=== PATIENT | female | born 1935 | race Caucasian/White ===

== ENCOUNTER → 2016-10-27 | Outpatient (CLI) | payer OTHER ==
[2016-10-27 13:48] LABS: ALT/SGPT 34 U/L (12-78); AST/SGOT 29 U/L (15-37); BLOOD UREA NITROGEN 17 mg/dl (7-18); BUN/CREATININE RATIO 28.6 (10-20); CALCIUM 9.5 mg/dl (8.5-10.1); CARBON DIOXIDE 29 mmol/L (21-32); CHLORIDE 106 mmol/L (98-107); CREATININE 0.59 mg/dl (0.60-1.20); GLUCOSE 88 mg/dl (70-99); POTASSIUM 3.5 mmol/L (3.5-5.1); SODIUM 143 mmol/L (136-145)
[2016-10-27 13:56] LABS: ALB/GLOB RATIO 1.1 (0.9-2); ALKALINE PHOSPHATASE 108 U/L (45-117); CHOLESTEROL 145 mg/dl (0-200); HDL CHOLESTEROL 49 mg/dl; LDL CHOLESTEROL CALCULATED 67 mg/dl; TRIGLYCERIDES 146 mg/dl (0-150); VERY LOW DENSITY LIPOPROT CALC 29 mg/dl
[2016-10-27 14:17] LABS: MEAN CELL VOLUME 88.2 fL (80-100); MEAN CORPUSCULAR HEMOGLOBIN 31.3 pg (25-34); MEAN CORPUSCULAR HGB CONC 35.5 g/dl (32-36); MEAN PLATELET VOLUME 9.6 fL (7.4-10.4); PLATELET COUNT 243 K/uL (130-400); RED BLOOD COUNT 4.76 M/uL (4.2-5.4); WHITE BLOOD COUNT 5.55 K/uL (4.8-10.8)
[2016-10-27 14:18] LABS: BASOPHIL % 1.8 %; COMPLETE YES; EOSINOPHIL % 1.8 %; LYMPH ABS # 0.84 K/uL (1.2-3.4); LYMPHOCYTE % 15.2 %; NEUTROPHILS % 50.8 %; PLT ESTIMATE NORMAL; TOXIC GRANULATION 1+; VARIANT LYM ABS # 0.99 K/uL; VARIANT LYMPHOCYTE % 17.9 %
== END | disposition home or self-care (01) ==
LOC: C.LABMFLN 11:28
PROVIDERS: ATTEND Family Medicine
DX: I10 Essential (primary) hypertension (principal); E78.5 Hyperlipidemia, unspecified; E03.9 Hypothyroidism, unspecified

== ENCOUNTER → 2017-12-14 | Outpatient (CLI) | payer OTHER ==
[2017-12-14 12:42] LABS: BASO % 0.6 %; BASO ABS # 0.03 K/uL (0-0.2); EOS % 4.3 %; EOS ABS # 0.22 K/uL (0-0.5); HEMATOCRIT 40.6 % (37-47); HEMOGLOBIN 14.5 g/dL (12.0-16.0); LYMPH % 47.2 %; LYMPH ABS # 2.41 K/uL (1.2-3.4); MEAN CORPUSCULAR HEMOGLOBIN 31.8 pg (25-34); MEAN CORPUSCULAR HGB CONC 35.7 g/dl (32-36); MEAN PLATELET VOLUME 9.7 fL (7.4-10.4); MONO % 13.7 %; NEUT % 34.2 %; NEUT ABS # 1.75 K/uL (1.4-6.5); PLATELET COUNT 292 K/uL (130-400); RED CELL DISTRIBUTION WIDTH CV 12.8 % (11.5-14.5); RED CELL DISTRIBUTION WIDTH SD 41.5 fL (36.4-46.3); WHITE BLOOD COUNT 5.11 K/uL (4.8-10.8)
[2017-12-14 13:19] LABS: ALBUMIN 3.6 gm/dl (3.4-5.0); ALT/SGPT 35 U/L (12-78); AST/SGOT 37 U/L (15-37); BLOOD UREA NITROGEN 16 mg/dl (7-18); CALCIUM 8.8 mg/dl (8.5-10.1); CARBON DIOXIDE 27 mmol/L (21-32); CHOLESTEROL 135 mg/dl (0-200); CREATININE 0.64 mg/dl (0.60-1.20); GLUCOSE 90 mg/dl (70-99); POTASSIUM 3.5 mmol/L (3.5-5.1); SODIUM 139 mmol/L (136-145)
[2017-12-14 13:28] LABS: ALKALINE PHOSPHATASE 121 U/L (45-117); LDL CHOLESTEROL CALCULATED 68 mg/dl; TOTAL PROTEIN 6.9 gm/dl (6.4-8.2)
== END | disposition home or self-care (01) ==
LOC: C.LABMFLN 09:47
PROVIDERS: ATTEND Family Medicine
DX: I10 Essential (primary) hypertension (principal); E78.5 Hyperlipidemia, unspecified; E03.9 Hypothyroidism, unspecified

== ENCOUNTER 2021-02-09 06:58 | Inpatient (IN) ==
--- NOTE | 2021-01-05 15:53 | PAT Medication Instructions ---
Medication Instructions Date of Service January 05, 2021 Home Medications Medication Instructions Recorded chlorthalidone 50 mg tablet 50 mg PO DAILY #90 tab 02/10/20 simvastatin 40 mg tablet 40 mg PO DAILY #90 tab 02/11/20 glucosamine-chondroitin 250 mg-200 mg tablet 1 tab PO QAM multivitamin 1 tab PO QAM psyllium husk 0.4 gram capsule 0.4 g PO QPM triamcinolone acetonide 55 mcg nasal spray aerosol 2 sprays INTRANASAL DAILY calcium carbonate 600 mg (1,500 mg)-vitamin D3 400 unit tablet 1 tab PO BID polyethylene glycol 3350 17 gram/dose oral powder 17 gm PO QAM PRN doxycycline hyclate 50 mg capsule 50 mg PO DAILY chlorthalidone 50 mg tablet 50 mg PO DAILY simvastatin 40 mg tablet 40 mg PO DAILY loratadine 10 mg tablet 10 mg PO QAM carboxymethylcellulose sodium 0.5 % eye drops in a dropperette 1 drp OPHTHALMIC (EYE) .COMPLEX levothyroxine [Synthroid] 88 mcg PO QAM oxybutynin chloride 5 mg PO BID pantoprazole 40 mg PO QAM potassium chloride 20 meq PO QPM potassium chloride 40 meq PO QAM STOP taking 2 weeks before surgery (or as soon as possible if surgery is within 2 weeks) glucosamine-chondroitin 250 mg-200 mg tablet 1 tab PO QAM DO NOT take the morning of surgery multivitamin 1 tab PO QAM calcium carbonate 600 mg (1,500 mg)-vitamin D3 400 unit tablet 1 tab PO BID polyethylene glycol 3350 17 gram/dose oral powder 17 gm PO QAM PRN chlorthalidone 50 mg tablet 50 mg PO DAILY loratadine 10 mg tablet 10 mg PO QAM oxybutynin chloride 5 mg PO BID potassium chloride 40 meq PO QAM Take morning of surgery With a small sip of water, OTHERWISE NOTHING TO EAT OR DRINK AFTER MIDNIGHT: doxycycline hyclate 50 mg capsule 50 mg PO DAILY simvastatin 40 mg tablet 40 mg PO DAILY carboxymethylcellulose sodium 0.5 % eye drops in a dropperette 1 drp OPHTHALMIC (EYE) .COMPLEX levothyroxine [Synthroid] 88 mcg PO QAM pantoprazole 40 mg PO QAM Take evening before surgery psyllium husk 0.4 gram capsule 0.4 g PO QPM calcium carbonate 600 mg (1,500 mg)-vitamin D3 400 unit tablet 1 tab PO BID carboxymethylcellulose sodium 0.5 % eye drops in a dropperette 1 drp OPHTHALMIC (EYE) .COMPLEX oxybutynin chloride 5 mg PO BID potassium chloride 20 meq PO QPM Other Notes If you have any questions please call us at [phone] or [phone] or [phone] or [phone]
--- NOTE | 2021-01-10 10:28 | Anesthesiology Consultation ---
Date of Service January 10, 2021 Assessment & Plan (1) Encounter for pre-operative examination: - COVID screening: Per assessment on 01/10: Travel screen negative, no known COVID-19 positive contacts or current COVID-19 related symptoms. Patient fully vaccinated. Surgeon arranging preop COVID testing (scheduled 02/04; [facility]). Awaiting results. - RUE limb restriction: s/p right lumpectomy with LND - PCP office visit (12/03/20): Routine screenings reviewed. No acute complaints. F/U one year recommended. Chart Review Chart Review: Acceptable Risk for Surgery and Patient seen in Pre Admission Testing Teaching & Discussion Pre-Anesthesia Teaching/Discussion Notes: Instructed NPO after midnight before surgery,except medications with 15 cc of water. Medication instructions provided according to the PAT guidelines. History Surgery Operation Date: 02/09/21 07:15 Proposed Procedures p Total Knee Arthroplasty - Paulino Hill MD Height/Weight Height: 5 ft 2.25 in Weight: 71 kg Allergies Allergy/AdvReac Type Severity Reaction Status Date / Time aspirin Allergy Unknown Mouth and Verified 01/10/21 10:37 tongue swelling ibuprofen Allergy Unknown Mouth Verified 01/10/21 10:37 swelling naproxen Allergy Unknown Anaphylaxis Verified 01/10/21 10:37 propoxyphene AdvReac Unknown Nausea Verified 01/10/21 10:37 Medications Home Medications Medication Instructions Recorded Confirmed Last Taken glucosamine-chondroitin 250 mg-200 1 tab PO QAM 03/16/19 01/03/21 Unknown mg tablet multivitamin 1 tab PO QAM 03/16/19 01/03/21 Unknown psyllium husk 0.4 gram capsule 0.4 g PO QPM cap 03/16/19 01/03/21 Unknown triamcinolone acetonide 55 mcg 2 sprays INTRANASAL DAILY ml 03/16/19 01/03/21 Unknown nasal spray aerosol calcium carbonate 600 mg (1,500 1 tab PO BID tab 03/19/19 01/03/21 Unknown mg)-vitamin D3 400 unit tablet polyethylene glycol 3350 17 17 gm PO QAM PRN gm 03/19/19 01/03/21 Unknown gram/dose oral powder doxycycline hyclate 50 mg capsule 50 mg PO DAILY 03/21/19 01/03/21 Unknown chlorthalidone 50 mg tablet 50 mg PO DAILY #90 tab 02/10/20 01/03/21 Unknown simvastatin 40 mg tablet 40 mg PO DAILY #90 tab 02/11/20 01/03/21 Unknown loratadine 10 mg tablet 10 mg PO QAM #30 tab 05/25/20 01/03/21 Unknown carboxymethylcellulose sodium 0.5 1 drp OPHTHALMIC (EYE) .COMPLEX ea 08/26/20 01/03/21 Unknown % eye drops in a dropperette levothyroxine [Synthroid] 88 mcg PO QAM 01/03/21 01/03/21 Unknown oxybutynin chloride 5 mg PO BID 01/03/21 01/03/21 Unknown pantoprazole 40 mg PO QAM 01/03/21 01/03/21 Unknown potassium chloride 20 meq PO QPM 01/03/21 01/03/21 Unknown potassium chloride 40 meq PO QAM 01/03/21 01/03/21 Unknown Past Medical History Medical History Acid reflux controlled Adult acne on doxycycline Allergic rhinitis Benign paroxysmal positional vertigo No recent issues Chronic low back pain Essential hypertension History of basal cell cancer History of right breast cancer s/p right lumpectomy with LND (RUE limb restriction) Hyperlipidemia Hypothyroidism Osteoarthritis of right knee Osteoporosis Patella fracture (~1980) Left knee -- no surgerical intervention Rosacea Urinary incontinence Exercise / Class Metabolic Activity II 4-5 Yardwork/Stairs/Walk up hill (one flight of stairs (no chest pain, no sob)) Past Family History Family History Mother Lung cancer Other No family history of adverse response to anesthesia Denies family history of Ovarian cancer Prostate cancer Myocardial infarction Breast cancer Colorectal cancer Stroke Past Surgical History Surgical History H/O ovarian cystectomy x2 History of cataract surgery R/L History of esophageal dilatation History of esophagogastroduodenoscopy (EGD) History of lumpectomy of right breast + LND History of surgical removal of skin lesion History of vitrectomy R/L S/P appendectomy S/P colonoscopy S/P hysterectomy ALEJANDRO & BSO Past Anesthesia History No Hx of Anesthesia Complications and No Family Hx of Anesthesia Complications History of PONV No Hx of PONV and No Hx of Motion Sickness Social History Smoking Status: Former smoker tobacco type: cigarettes Do You Dip or Chew Tobacco: No Smoking End Date: 1971 (very light use prior to quitting) Hx Alcohol Use: Yes Alcohol type: wine alcohol intake frequency: a few times a week Hx Substance Use: No substance use type: does not use Review of Systems No snoring. Patient denies chest pain, shortness of breath, dyspnea on exertion, fever, chills, cough, wheezing, palpitations. Physical Exam Vital Signs VITALS BP 122/72 P 76 TEMP 98.4 SP02 97%RA RESP 16 PHYSICAL Full cervical extension range of motion (+ cervicalgia with extension) Full TMJ range of motion. TMD 3.5 finger breaths Mallampati Score 3 Dentition: missing molars, + crowns/caps (several) Lungs: lower lung base crackles Cardiac: regular rate and rhythm, no murmurs noted Spine: normal Carotid arteries: negative bruit Extremities: no edema Testing Laboratory Results 01/10/21 10:58 01/10/21 10:58 PT 10.2 Seconds (9.0-12.0) 01/10/21 10:58 INR 1.0 (0.9-1.1) 01/10/21 10:58 APTT 24.0 Seconds (21.0-31.0) 01/10/21 10:58 Hemoglobin A1c 5.7 % (4.5-5.6) H 01/10/21 10:58 Urine Color Yellow 01/10/21 10:58 Urine Appearance Clear (Clear) 01/10/21 10:58 Urine pH 5.0 (4.5-7.5) 01/10/21 10:58 Ur Specific [place] 1.015 (1.000-1.030) 01/10/21 10:58 Urine Protein Negative (Negative) 01/10/21 10:58 Urine Glucose (UA) Negative (Negative) 01/10/21 10:58 Urine Ketones Negative (Negative) 01/10/21 10:58 Urine Nitrite Negative (Negative) 01/10/21 10:58 Ur Leukocyte Esterase Negative (Negative) 01/10/21 10:58 Blood Type B Negative 01/10/21 10:58 Antibody Screen NEGATIVE 01/10/21 10:58 Electrocardiogram Date: 01/10/21 NSR at 62bpm. NS STA. Chest X-Ray Date: 01/10/21 FINDINGS: The heart is normal in size. There is mild aortic tortuosity/ectasia. There are surgical clips in the right axillary region. There is no failure. There is no lobar consolidation. There are no significant pleural effusions. There is minor basilar interstitial thickening, likely chronic. IMPRESSION: Mild basilar interstitial thickening, likely chronic. No evidence of failure. No evidence of lobar consolidation
[2021-01-10 12:03] LABS: Basophils # (auto) 0.02 K/uL (0-0.2); Basophils % (auto) 0.3 %; Eosinophils # (auto) 0.32 K/uL (0-0.5); Eosinophils % (auto) 5.6 %; Hematocrit (blood only) 40.5 % (37-47); Hemoglobin 14.2 g/dL (12.0-16.0); Lymphocytes # (auto) 2.04 K/uL (1.2-3.4); Lymphocytes % (auto) 35.7 %; Mean Corpuscular Hemoglobin 31.6 pg (25-34); Mean Corpuscular Hgb Conc 35.1 g/dL (32-36); Mean Platelet Volume 9.5 fL (7.4-10.4); Monocytes # (auto) 0.57 K/uL (0.11-0.59); Neutrophils # (auto) 2.77 K/uL (1.4-6.5); Neutrophils % (auto) 48.4 %; Platelet Count 274 K/uL (130-400); RDW Coefficient of Variation 12.5 % (11.5-14.5); RDW Standard Deviation 40.6 fL (36.4-46.3); White Blood Count 5.72 K/uL (4.8-10.8)
[2021-01-10 12:06] LABS: Appearance Urine Clear (Clear); Bilirubin Urine Negative (Negative); Blood Urine Negative (Negative); Color Urine Yellow; Glucose Urine UA Negative (Negative); Ketones Urine Negative (Negative); Leukocyte Esterase Urine Negative (Negative); Nitrite Urine Negative (Negative); Protein Urine Negative (Negative); Specific Gravity Urine 1.015 (1.000-1.030); Urobilinogen Urine Negative (Negative)
[2021-01-10 12:15] LABS: Partial Thromboplastin Ratio 0.9; Prothrombin Time 10.2 Seconds (9.0-12.0)
[2021-01-10 12:18] LABS: Albumin Level 3.7 gm/dl (3.4-5.0); BUN Creatinine Ratio 32.6 (10-20); Creatinine Clr Calc Pharmacy 68.2 ml/min; Est GFR (African American) 98.4 ml/min; Est GFR (Non-African American) 84.9 ml/min; Potassium 3.4 mmol/L (3.5-5.1)
--- NOTE | 2021-01-10 12:39 | XRay Report ---
XR chest Pre-admission PA/Lat CLINICAL HISTORY: Preoperative chest COMPARISON STUDY: No previous studies for comparison. FINDINGS: The heart is normal in size. There is mild aortic tortuosity/ectasia. There are surgical cl ips in the right axillary region. There is no failure. There is no lobar consolidation. There are no significant pleural effusions. There is minor basilar interstitial thickening, likely chronic.[ IMPRESSION: Mild basilar interstitial thickening, likely chronic. No evidence of failure. No evidence of lobar consolidation ACT 112: Negative or not required by law. Electronically signed by: Mert Trimble M.D. 01/10/2021 12:38 PM
[2021-01-10 12:41] LABS: Estimated Average Glucose 117 mg/dl; Hemoglobin A1C 5.7 % (4.5-5.6)
--- NOTE | 2021-01-10 14:39 | Electrocardiogram Report ---
Test Reason : Blood Pressure : / mmHG Vent. Rate : 062 BPM Atrial Rate : 062 BPM P-R Int : 196 ms QRS Dur : 094 ms QT Int : 420 ms P-R-T Axes : -07 -15 -20 degrees QTc Int : 426 ms Normal sinus rhythm Nonspecific ST abnormality Abnormal ECG No previous ECGs available Confirmed by Carlos Rodriguez ([id number]) on 01/10/2021 2:39:21 PM Referred By: Paulino Hill Confirmed By:Carlos Rodriguez
--- NOTE | 2021-02-06 17:39 | History & Physical Report ---
Date of Service February 06, 2021 Assessment & Plan (1) Primary osteoarthritis of right knee: Treatment options discussed with patient. She has failed conservative measures as above. Pain interfering with ADLs and leisure activity. She would like to proceed with surgical intervention. Risks, benefits and alternatives to surgery including but not limited to infection, DVT, pain, stiffness, need for revision surgery, damage to blood vessels, damage to nerves, PE, , were discussed with the patient and they wish to proceed. Plan on right total knee arthroplasty at [facility] on 02/09/[address] Hill. Will plan on Xarelto for DVT prophylaxis post operatively. Will likely require inpatient rehab/care home facility post discharge. All questions answered. F/u post op. History of Present Illness Chief Complaint: Right knee pain Primary Care Provider: Zoe Sauceda MD 85 year old female with PMHx significant for GERD, BPPV, HTN, high cholesterol, hx of breast Ca and BCC, hypothyroidism who presents with longstanding right knee pain. Pain interfering with her ability to carry out daily activities and leisure activities. She is unable to take NSAIDs due to allergy. Has failed other conservative measures including Tylenol and injections. She would like to proceed with knee replacement. Patient denies headaches, sweats, fevers, chills, double vision, blurred vision, cough, sore throat, dysphagia, chest pain, sob, wheezing, n/v/d/c, numbness, tingling, fatigue, urinary symptoms, mood disorders. ROS positive for right knee pain and stiffness. Allergies Allergy/AdvReac Type Severity Reaction Status Date / Time aspirin Allergy Unknown Mouth and Verified 01/10/21 10:37 tongue swelling ibuprofen Allergy Unknown Mouth Verified 01/10/21 10:37 swelling naproxen Allergy Unknown Anaphylaxis Verified 01/10/21 10:37 propoxyphene AdvReac Unknown Nausea Verified 01/10/21 10:37 Home Medications Medication Instructions Recorded Confirmed Type glucosamine-chondroitin 250 mg-200 1 tab PO QAM 03/16/19 01/03/21 History mg tablet multivitamin 1 tab PO QAM 03/16/19 01/03/21 History psyllium husk 0.4 gram capsule 0.4 g PO QPM cap 03/16/19 01/03/21 History triamcinolone acetonide 55 mcg 2 sprays INTRANASAL DAILY ml 03/16/19 01/03/21 History nasal spray aerosol calcium carbonate 600 mg (1,500 1 tab PO BID tab 03/19/19 01/03/21 History mg)-vitamin D3 400 unit tablet polyethylene glycol 3350 17 17 gm PO QAM PRN gm 03/19/19 01/03/21 History gram/dose oral powder doxycycline hyclate 50 mg capsule 50 mg PO DAILY 03/21/19 01/03/21 History simvastatin 40 mg tablet 40 mg PO DAILY #90 tab 02/11/20 01/03/21 Rx loratadine 10 mg tablet 10 mg PO QAM #30 tab 05/25/20 01/03/21 History carboxymethylcellulose sodium 0.5 1 drp OPHTHALMIC (EYE) .COMPLEX ea 08/26/20 01/03/21 History % eye drops in a dropperette levothyroxine [Synthroid] 88 mcg PO QAM 01/03/21 01/03/21 History pantoprazole 40 mg PO QAM 01/03/21 01/03/21 History potassium chloride 20 meq PO QPM 01/03/21 01/03/21 History potassium chloride 40 meq PO QAM 01/03/21 01/03/21 History chlorthalidone 50 mg tablet 50 mg PO DAILY #90 tab 02/01/21 Rx oxybutynin chloride 5 mg tablet 5 mg PO BID #180 tab 02/01/21 Rx Past Med/Surg History Medical History Acid reflux controlled Adult acne on doxycycline Allergic rhinitis Benign paroxysmal positional vertigo No recent issues Chronic low back pain Essential hypertension History of basal cell cancer History of right breast cancer s/p right lumpectomy with LND (RUE limb restriction) Hyperlipidemia Hypothyroidism Osteoarthritis of right knee Osteoporosis Patella fracture (~1980) Left knee -- no surgerical intervention Rosacea Urinary incontinence Surgical History H/O ovarian cystectomy x2 History of cataract surgery R/L History of esophageal dilatation History of esophagogastroduodenoscopy (EGD) History of lumpectomy of right breast + LND History of surgical removal of skin lesion History of vitrectomy R/L S/P appendectomy S/P colonoscopy S/P hysterectomy ALEJANDRO & BSO Family History Mother Lung cancer Other No family history of adverse response to anesthesia Denies family history of Ovarian cancer Prostate cancer Myocardial infarction Breast cancer Colorectal cancer Stroke Social History Smoking Status: Former smoker Age Started Using Tobacco: 27; Age Quit Using Tobacco: 33; Smoking End Date: 1971 (very light use prior to quitting); Second Hand Exposure: Yes (Father smoked ); Do You Dip or Chew Tobacco: No; Tobacco Cessation Education Requested by Patient: No Hx Alcohol Use: Yes Alcohol type: wine Alcohol Intake Frequency: 2-3 x/Week Alcohol Intake Frequency Comment: 1 glass Hx Substance Use: No Preferred Language: [place] Communication Ability: Effective Visual Impairment: Limited Hearing Ability: Use of Hearing Aid Jack Spinner Required: No Beliefs That Will Affect Care: None marital status: / Current Living Situation: Alone current occupational status: employed 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 How many Children do You have: 2 Other Information That Helps Us Care for You: No Feels Safe at Home: Yes Childhood Exposure to Second-Hand Smoke: Yes (father smoked ) Diet Comment: Regular diet caffeine: Yes (drinks tea daily) during the past year weight has: remained stable Dental Care, Regularly: Yes Physical Activity Frequency: Daily Seatbelt Use: always Sunscreen Use: Yes Do you think of yourself as: straight/heterosexual Assistive Devices: Glasses and Hearing Aid - Bilateral Review of Systems All systems reviewed & are unremarkable except as noted in HPI & below Physical Exam Constitutional: well developed and well nourished; no acute distress Eyes: PERRL, conjunctivae normal, anicteric sclerae ENMT: external ear and nose normal, oropharynx normal Neck: trachea midline, no thyromegaly Respiratory: normal respiratory effort, lungs clear to auscultation Cardiovascular: RRR, no murmur, no edema Musculoskeletal: Right knee: Valgus alignment. Mild effusion. Tenderness lateral and medial joint line. Mild crepitation. Positive Ivan's. Laxity with valgus stress, negative varus stress. ROM 10-130 degrees Skin: no rashes, warm and dry Neurologic: patellar DTR's 2+ bilat, sensation intact Psychiatric: A+Ox3, euthymic affect Results & Data ([facility]) Laboratory Results Lab Results 01/10/21 01/10/21 01/10/21 Range/Units 10:58 10:58 10:58 WBC 5.72 (4.8-10.8) K/uL RBC 4.50 (4.2-5.4) M/uL Hgb 14.2 (12.0-16.0) g/dL Hct 40.5 (37-47) % MCV 90.0 (80-100) fL MCH 31.6 (25-34) pg MCHC 35.1 (32-36) g/dL RDW Std Deviation 40.6 (36.4-46.3) fL RDW Coeff of Luisa 12.5 (11.5-14.5) % Plt Count 274 (130-400) K/uL MPV 9.5 (7.4-10.4) fL Immature Gran % (Auto) 0.0 % Neut % (Auto) 48.4 % Lymph % (Auto) 35.7 % [place] % (Auto) 10.0 % Eos % (Auto) 5.6 % Baso % (Auto) 0.3 % Neut # (Auto) 2.77 (1.4-6.5) K/uL Lymph # (Auto) 2.04 (1.2-3.4) K/uL [place] # (Auto) 0.57 (0.11-0.59) K/uL Eos # (Auto) 0.32 (0-0.5) K/uL Baso # (Auto) 0.02 (0-0.2) K/uL Immature Gran # (Auto) 0.00 (0.00-0.02) K/uL PT 10.2 (9.0-12.0) Seconds INR 1.0 (0.9-1.1) APTT 24.0 (21.0-31.0) Seconds PTT Ratio 0.9 Sodium (136-145) mmol/L Potassium (3.5-5.1) mmol/L Chloride (98-107) mmol/L Carbon Dioxide (21-32) mmol/L Anion Gap (3-11) BUN (7-18) mg/dl Creatinine (0.6-1.2) mg/dl Est Cr Clr Drug Dosing ml/min Est GFR ( Amer) ml/min Est GFR (Non-Af Amer) ml/min BUN/Creatinine Ratio (10-20) Glucose (70-99) mg/dl Estimat Average Glucose mg/dl Hemoglobin A1c (4.5-5.6) % Calcium (8.5-10.1) mg/dl Albumin (3.4-5.0) gm/dl Urine Color Urine Appearance (Clear) Urine pH (4.5-7.5) Ur Specific [place] (1.000-1.030) Urine Protein (Negative) Urine Glucose (UA) (Negative) Urine Ketones (Negative) Urine Blood (Negative) Urine Nitrite (Negative) Urine Bilirubin (Negative) Urine Urobilinogen (Negative) Ur Leukocyte Esterase (Negative) Blood Type B Negative Antibody Screen NEGATIVE 01/10/21 01/10/21 01/10/21 Range/Units 10:58 10:58 10:58 WBC (4.8-10.8) K/uL RBC (4.2-5.4) M/uL Hgb (12.0-16.0) g/dL Hct (37-47) % MCV (80-100) fL MCH (25-34) pg MCHC (32-36) g/dL RDW Std Deviation (36.4-46.3) fL RDW Coeff of Luisa (11.5-14.5) % Plt Count (130-400) K/uL MPV (7.4-10.4) fL Immature Gran % (Auto) % Neut % (Auto) % Lymph % (Auto) % [place] % (Auto) % Eos % (Auto) % Baso % (Auto) % Neut # (Auto) (1.4-6.5) K/uL Lymph # (Auto) (1.2-3.4) K/uL [place] # (Auto) (0.11-0.59) K/uL Eos # (Auto) (0-0.5) K/uL Baso # (Auto) (0-0.2) K/uL Immature Gran # (Auto) (0.00-0.02) K/uL PT (9.0-12.0) Seconds INR (0.9-1.1) APTT (21.0-31.0) Seconds PTT Ratio Sodium 142 (136-145) mmol/L Potassium 3.4 L (3.5-5.1) mmol/L Chloride 109 H (98-107) mmol/L Carbon Dioxide 27 (21-32) mmol/L Anion Gap 6.0 (3-11) BUN 18 (7-18) mg/dl Creatinine 0.55 L (0.6-1.2) mg/dl Est Cr Clr Drug Dosing 68.2 ml/min Est GFR ( Amer) 98.4 ml/min Est GFR (Non-Af Amer) 84.9 ml/min BUN/Creatinine Ratio 32.6 H (10-20) Glucose 106 H (70-99) mg/dl Estimat Average Glucose 117 mg/dl Hemoglobin A1c 5.7 H (4.5-5.6) % Calcium 9.0 (8.5-10.1) mg/dl Albumin 3.7 (3.4-5.0) gm/dl Urine Color Yellow Urine Appearance Clear (Clear) Urine pH 5.0 (4.5-7.5) Ur Specific [place] 1.015 (1.000-1.030) Urine Protein Negative (Negative) Urine Glucose (UA) Negative (Negative) Urine Ketones Negative (Negative) Urine Blood Negative (Negative) Urine Nitrite Negative (Negative) Urine Bilirubin Negative (Negative) Urine Urobilinogen Negative (Negative) Ur Leukocyte Esterase Negative (Negative) Blood Type Antibody Screen Diagnostic Findings X-rays of her right knee demonstrate that she has bilateral valgus knees, right greater than left. She has tricompartmental osteoarthritis both knees. The left knee is close to being bone on bone with only about a millimeter or two of joint space. The right knee is clearly bone on bone. Both knees have medial subluxation of the femur on the tibia. There are subchondral sclerotic changes. There are osteophytes. Four-view right knee including weightbearing films.
[~2021-02-09 06:58] MED LIST: ACETAMINOPHEN 500 MG TAB PO SCH; BUPIVACAINE 0.25% 30 ML VIAL ONE; BUPIVACAINE 0.5 % 5 MG/1 ML PF 10ML VIAL ONE; EPINEPHrine INJ 1 MG/ML AMP ONE; FAMOTIDINE 20 MG TAB PO SCH; GABAPENTIN 300 MG CAP PO SCH; LR 500ML BOLUS, THEN 15ML/HR IV SCH; METOCLOPRAMIDE HCL 10 MG TABLET PO SCH; TRANEXAMIC ACID 1,000 MG **IV Intra-op IV SCH; TRANEXAMIC ACID 1,000 MG **IV Pre-op IV SCH; ceFAZolin 1000MG 1,000 MG/7.5 ML SYR IV SCH; dexAMETHasone 4 MG TAB PO SCH
[2021-02-09] MEDS ORDERED: MIDAZOLAM HCL 1 MG/ML 2ML VIAL ONE (08:27)
[2021-02-09] MEDS ORDERED: fentaNYL citrate 100 MCG/2 ML VIAL IV PRN (08:48)
[2021-02-09] MEDS ORDERED: ONDANSETRON INJ 2 MG/ML 2 ML VIAL IV PRN ×2 (08:48→12:57)
[2021-02-09] MEDS ORDERED: ePHEDrine sulfate 50 MG/ML AMP IV PRN (08:48)
[2021-02-09] MEDS ORDERED: ATROPINE SULFATE 0.1 MG/ML 10ML SYR IV PRN (08:48)
[2021-02-09] MEDS ORDERED: HYDROmorphone INJ 2 MG/ML SYR/VIAL IV PRN (08:48)
--- NOTE | 2021-02-09 08:55 | History & Physical Bridge Note ---
Date of Service February 09, 2021 History & Physical Bridge Note I have examined the patient, reviewed the History & Physical and in the interval since the performance of the History & Physical I have noted the following changes of clinical significance: no changes noted
[2021-02-09] MEDS ORDERED: ROPIVACAINE 0.5% HCL/PF 150 MG, BUPIVACAINE 0.75% MPF 20 ML, EPINEPHrine 0.15 MG, dexAM... INFIL SCH (10:00)
[2021-02-09] MEDS ORDERED: METOPROLOL TARTRATE 1 MG/ML VIAL IV ONE (11:08)
[2021-02-09] MEDS ORDERED: PROPOFOL IV EMULSION 10 MG/ML 20 ML VIAL IV ONE (11:08)
[2021-02-09] MEDS ORDERED: LIDOCAINE 2% 2 ML VIAL/AMP(20MG/ML) INFIL ONE (11:08)
[2021-02-09] MEDS ORDERED: DEXAMETHASONE SOD INJ 4 MG/ML VIAL ONE (11:08)
[2021-02-09] MEDS ORDERED: ESMOLOL HCL INJ 10 MG/ML 10ML VIAL IV ONE (11:09)
--- NOTE | 2021-02-09 11:34 | Post Operative Brief Note ---
Immediate Post Op Note v1 Date of Surgery February 09, 2021 Pre & Post Diagnosis Operation Date: 02/09/21 09:30 Pre-Op Diagnosis: Unilateral Primary Osteoarthrits, Right Knee Post-Op Diagnosis: Unilateral Primary Osteoarthrits, Right Knee I identified the patient and participated in the time-out.: Yes Procedure Operation Date: 02/09/21 09:30 Actual Procedures p Right Total Knee Arthroplasty, superficial wound VAC (Right) - Paulino Hill MD Surgeon Paulino Hlil MD Production Consultant Armando HOSKINS Estimated Blood Loss 5 Findings Consistent with Post-Op Diagnosis Specimens Bone cuts Drains Hemovac Drain Anesthesia Type MAC Spinal Regional Complications none Disposition Accompanied Patient To Recovery: No Disposition: Recovery Room Overlapping Procedure I was immediately available: during the entire case.
--- NOTE | 2021-02-09 11:48 | Operative Report ---
Post Operative Report Pre & Post Diagnosis Operation Date: 02/09/21 09:30 Pre-Op Diagnosis: Unilateral Primary Osteoarthritis, Right Knee Post-Op Diagnosis: Unilateral Primary Osteoarthritis, osteopenia probable osteoporosis, right Knee I identified the patient and participated in the time-out.: Yes Procedure Operation Date: 02/09/21 09:30 Actual Procedures p Right Total Knee Arthroplasty, superficial wound VAC (Right) - Paulino Hill MD Surgeon Paulino Hill MD Technology Director Armando HOSKINS Estimated Blood Loss 5 Findings Consistent with Post-Op Diagnosis Specimens Bone cuts Drains 2 Hemovac Anesthesia Type MAC Spinal Regional Complications none Disposition Accompanied Patient To Recovery: No Disposition: Recovery Room Indications 85-year-old female with chronic progressive osteoarthritis right greater than left knee. Patient failed conservative management. She had some improvement in her function with physical therapy but continues have significant disabling pain. Radiographs demonstrate she has a valgus knee right greater than left with [id number] with some bone loss in the lateral compartment posterior lateral tibial plateau with instability and ankle and foot issues due to the significant valgus alignment of her knee. Description of Procedure Patient taken to the operating room the size under spinal MAC regional anesthesia. Patient was placed supine on the operating table. A pneumatic tourniquet was placed about the right upper thigh. The right lower extremity was prepped and draped in sterile fashion. Knee exam demonstrated valgus knee 15 through 130 degrees range of motion with laxity MCL on valgus stress [id number] lateral compartment. The leg was elevated exsanguinated with an Esmarch bandage and pneumatic tourniquet was raised to 300 millimeters of mercury. Skin incised sharply in longitudinal fashion. Subcutaneous flaps elevated. Incision was made through the medial retinaculum extending up in the mid third of the quadriceps tendon and down to the medial tibial tubercle. Intra-articular findings demonstrated tricompartmental osteoarthritis grade 3 medial compartment patellofemoral OA with grade 4 lateral compartment OA with bone loss posterior lateral tibial plateau. The Apteran total knee arthroplasty system was used. To expose the knee the infrapatellar fat pad was resected. The meniscal remnants and cruciate ligaments were resected. The anterior fat pad over the femur in the area of the anterior flange of the femoral component was resected. Lateral synovial bands release. The femur was exposed. An intramedullary drill hole was made into the canal. A guide joaquín was placed. Distal femoral cutting guide was adjusted to resect a 6 degree valgus cut with 10 millimeters distal femur resected. The knee was extended and a subperiosteal peel lateral release was performed around the patella. Patella width was measured and width was reproduced using a freehand cut technique and a 33 x 9 symmetrical patella component. The 3 drill holes were made and the excess lateral facet was beveled off to prevent any impingement. Attention was taken back to the femur which was exposed with retractors and the femoral sizing guide was pinned in position. The drill holes were placed in 3 of external rotation to match epicondylar axis. The size 4 was appropriate medial lateral width but this would not notch with a standard cut so I used the 1.5 mm block to adjust the cut anteriorly 1.5 mm drill to new holes and then placed the cutting block in place. The 4-in-1 cutting block was placed and then the anterior posterior and chamfer cuts are made. The tibia was then subluxed. The external tibial cutting guide was just to make a perpendicular cut to the long axis of the tibia below the most deficient bone loss side. A lamina radiation officer was used and the flexion extension gaps were balanced. Because a tight lateral compartment is required subperiosteal release of the IT band lateral posterior lateral capsule release popliteal tendon release off the femur and partial recession of the lateral collateral ligament. All meniscal remnants were resected. The tibia exposed and the trial tibial component size 3 was externally rotated in line with the tibial tubercle and pinned in position. The punch for stem was used. The notch cutting device was centered appropriately and the femoral notch cut was made. The femoral trial was inserted. Trial tibial inserts were placed and size 11 gave balanced ligaments through flexion and extension. Patella tracking was assessed. The patella tracked centrally. The trial components were then removed and the orthomix anesthetic cocktail was injected per protocol. The knee was then copiously irrigated with pulsatile lavage saline solution. Final components were then cemented with Simplex cement. Final components were for right posterior stabilized triathlon Danisha femoral component, 3 primary tibial baseplate, 3 x 11 mm posterior stabilized X.3 polyethylene tibial bearing insert, S 33 x 9 mm X3 polyethylene symmetrical patella.. After the cement cured the Betadine soak was used per protocol. further pulsatile lavage irrigation performed and 2 Hemovac drains were brought out laterally. The quadriceps tendon and medial retinaculum were closed with figure of 8 #1 Vicryl sutures. The knee was taken through full range of motion and the repair was secure with range of motion 0 through 135 degrees. The subcutaneous tissues were closed with 2-0 Vicryl sutures. Skin was closed with jurgen. A superficial wound VAC was applied. Armando HOSKINS was my physician campus administrative assistant who assisted in patient positioning prepping and draping,leg positioning ,soft tissue retraction and instrument management and participated in the closing and placed on the superficial wound VAC and will participate in postoperative care of the patient. The patient tolerated the procedure well. I attest to the content of the Intraoperative Record and any orders documented therein. Any exceptions are noted below.
--- NOTE | 2021-02-09 12:26 | XRay Report ---
TWO VIEWS RIGHT KNEE CLINICAL HISTORY: Postoperative examination. FINDINGS: AP and crosstable lateral portable views of the right knee are obtained. A right knee arthr oplasty is in near anatomic alignment. There has been undersurface remodeling of the patella. No acut e fracture is seen. There are expected postoperative changes around the knee including skin clips, a surgical drain, soft tissue edema, and subcutaneous gas. IMPRESSION: Expected postoperative changes status post right knee arthroplasty. No acute fracture is seen. ACT 112: Negative or not required by law. Electronically signed by: Tylor Haynes M.D. 02/09/2021 12:24 PM
[2021-02-09] MEDS ORDERED: POLYETHYLENE (MIRALAX) 17 GM PACK PO PRN (12:57)
[2021-02-09] MEDS ORDERED: HYDROmorphone INJ 0.5 MG/0.5 ML SYR IV PRN (12:57)
[2021-02-09] MEDS ORDERED: METOCLOPRAMIDE HCL INJ 5 MG/ML 2 ML VIAL IV PRN (12:57)
[2021-02-09] MEDS ORDERED: NALOXONE HCL 0.4 MG/1 ML VIAL/CARP IV PRN (12:57)
[2021-02-09] MEDS ORDERED: MAGNESIUM HYDROXIDE SUSP 30 ML UDC PO PRN (12:57)
[2021-02-09] MEDS ORDERED: bisacodyL 10 MG SUPP PR PRN (12:57)
--- NOTE | 2021-02-09 13:44 | Electrocardiogram Report ---
Test Reason : Blood Pressure : / mmHG Vent. Rate : 089 BPM Atrial Rate : 076 BPM P-R Int : 000 ms QRS Dur : 104 ms QT Int : 372 ms P-R-T Axes : 000 -12 -48 degrees QTc Int : 452 ms Normal sinus rhythm with frequent , and consecutive Premature atrial complexes Nonspecific ST abnormality Abnormal ECG When compared with ECG of 10-JAN-2021 11:02, No significant change Confirmed by Carlos Rodriguez ([id number]) on 02/09/2021 1:44:16 PM Referred By: Paulino Hill Confirmed By:Carlos Rodriguez
--- NOTE | 2021-02-09 13:46 | Electrocardiogram Report ---
Test Reason : Blood Pressure : / mmHG Vent. Rate : 053 BPM Atrial Rate : 053 BPM P-R Int : 206 ms QRS Dur : 102 ms QT Int : 468 ms P-R-T Axes : 112 -19 013 degrees QTc Int : 439 ms Sinus bradycardia with marked sinus arrhythmia Nonspecific ST and T wave abnormality Abnormal ECG When compared with ECG of 09-FEB-2021 11:48, (unconfirmed) Vent. rate has decreased BY 36 BPM Nonspecific T wave abnormality now evident in Lateral leads Confirmed by Carlos Rodriguez ([id number]) on 02/09/2021 1:45:35 PM Referred By: Paulino Hill Confirmed By:Carlos Rodriguez
[2021-02-09] MEDS ORDERED: ARTIFICIAL TEARS OP PRN (14:00)
--- NOTE | 2021-02-09 14:00 | Anesthesiology Progress Note ---
Date of Service February 09, 2021 Anesthesia Post Procedure Vital Signs Vital Signs: Temp Pulse Pulse Resp BP Pulse Ox 02/09/21 13:45 36.3 C L 65 16 112/69 98 02/09/21 13:21 36.7 C 71 18 120/66 98 02/09/21 12:25 36.5 C 58 L 16 122/69 98 02/09/21 12:15 58 L 16 126/68 98 02/09/21 12:05 60 16 107/73 98 02/09/21 11:55 61 16 117/68 98 02/09/21 11:45 93 H 16 107/70 98 02/09/21 11:39 36.1 C L 113 H 16 88/63 L 98 02/09/21 08:10 36.4 C L 56 L 18 178/73 H 96 Transfer of Care Handoff Completed per policy Notes Mental Status: alert / awake / arousable and participated in evaluation Patient Amnestic to Procedure: Yes Nausea / Vomiting: adequately controlled Pain: adequately controlled Airway Patency, RR, SpO2: stable & adequate BP & HR: stable & adequate and see Notes below (pt was sinus tachycardic during the case. post op ekg obtained. first ekg showed afib but there were not proper tracings for leads v4-v6. The ekg also did not look like the 3 lead ekg. Repeat ekg done which did not show afib) Hydration State: stable & adequate Anesthetic Complications: no major complications apparent and Pt Satisfied with anesthetic care
--- NOTE | 2021-02-09 14:18 | Hospitalist Consultation ---
Date of Consultation February 09, 2021 Assessment & Plan (1) Primary osteoarthritis of right knee: POD#0 Right TKA. Mrs. Sigala is an 85-year-old female with a history of Hypertension, Hyperlipidemia, Hypothyroidism, Osteoporosis, GERD, Benign Paroxysmal Positional Vertigo, and DJD of the Right Knee who is POD#0 s/p Right TKA. Patient is currently being seen in room 303 and she offers no complaints at this time. Patient states that her knee pain/surgical pain is very well controlled. Tiffanie ent denies any postoperative nausea or vomiting. Patient has not any postoperative complications or post anesthesia complications. Patient is hemodynamically stable. Her blood pressure is well controlled. 1. Analgesic for pain control as ordered by Ortho. 2. Continue DVT prophylaxis. 3. PT and OT evaluations. 4. Monitor daily CBC, BMP. 5. Ambulate in room with assistance. (2) Essential hypertension: Blood pressure appears to be controlled. -- Continue Chlorthalidone 50 mg daily. -- Continue Potassium Chloride 40 mEq each morning and 20 mEq each evening. -- Hold diuretic for systolic blood pressure less than 110 mmHg. -- Monitor daily BMP. (3) Hyperlipidemia: Fasting Lipid Panel from November 2020 shows a Total Cholesterol of 146 mg/dL, HDL 53 mg/dL, and LDL 66 mg/dL. -- Continue Simvastatin 40 mg daily. (4) Acid reflux: Controlled. -- Continue Protonix 40 mg daily. Supervising Physician Co-Signing Physician Notes I personally saw and examined the patient. I verified all smith points and agree with Luiz Flood PA-C with the following exceptions and/or additions: Separately reviewed medications with patient. Agree with all management as above. Medicine to review patient tomorrow with post op labs. History of Present Illness Reason for Consultation: -- Post-op Medical Management. -- Hypertension. Requesting Physician: Paulino Hill MD Attending Physician: Michael Loera MD History of Present Illness Mrs. Sigala is an 85-year-old female with a history of Hypertension, Hyperlipidemia, Hypothyroidism, Osteoporosis, GERD, Benign Paroxysmal Positional Vertigo, and DJD of the Right Knee s/p Right TKA earlier today with Dr. Hill. Patient is currently being seen in room 303. She offers no complaints at this time. Patient states that her knee pain is very well controlled. She currently has an ice pack on her knee. Patient denies any postoperative nausea or vomiting. She ate her entire lunch today. Patient denies any chest pain, heaviness, tightness, pressure, or discomfort. She denies any shortness of breath. She denies any abdominal pain. She denies any palpitations, syncope, or near syncope. She has not had any melena or hematochezia. She denies any focal neurologic symptoms. Patient states that her blood pressure has been very well controlled. Her most recent lipid panel was favorable as well. Allergies Allergy/AdvReac Type Severity Reaction Status Date / Time aspirin Allergy Unknown Mouth and Verified 02/09/21 08:03 tongue swelling ibuprofen Allergy Unknown Mouth Verified 02/09/21 08:03 swelling naproxen Allergy Unknown Anaphylaxis Verified 02/09/21 08:03 propoxyphene AdvReac Unknown Nausea Verified 02/09/21 08:03 Home Medications Medication Instructions Recorded Confirmed Type glucosamine-chondroitin 250 mg-200 1 tab PO QAM 03/16/19 02/09/21 History mg tablet multivitamin 1 tab PO QAM 03/16/19 02/09/21 History psyllium husk 0.4 gram capsule 0.4 g PO QPM cap 03/16/19 02/09/21 History triamcinolone acetonide 55 mcg 2 sprays INTRANASAL DAILY ml 03/16/19 02/09/21 History nasal spray aerosol calcium carbonate 600 mg (1,500 1 tab PO BID tab 03/19/19 02/09/21 History mg)-vitamin D3 400 unit tablet polyethylene glycol 3350 17 17 gm PO QAM PRN gm 03/19/19 02/09/21 History gram/dose oral powder doxycycline hyclate 50 mg capsule 50 mg PO DAILY 03/21/19 02/09/21 History simvastatin 40 mg tablet 40 mg PO DAILY #90 tab 02/11/20 02/09/21 Rx loratadine 10 mg tablet 10 mg PO QAM #30 tab 05/25/20 02/09/21 History carboxymethylcellulose sodium 0.5 1 drp OPHTHALMIC (EYE) .COMPLEX ea 08/26/20 02/09/21 History % eye drops in a dropperette levothyroxine [Synthroid] 88 mcg PO QAM 01/03/21 02/09/21 History pantoprazole [Protonix] 40 mg PO QAM 01/03/21 02/09/21 History potassium chloride 20 meq PO QPM 01/03/21 02/09/21 History potassium chloride 40 meq PO QAM 01/03/21 02/09/21 History chlorthalidone 50 mg tablet 50 mg PO DAILY #90 tab 02/01/21 02/09/21 Rx oxybutynin chloride 5 mg tablet 5 mg PO BID #180 tab 02/01/21 02/09/21 Rx acetaminophen 1,000 mg PO Q8 14 Days #84 tab 02/09/21 Rx Patient History Medical History Acid reflux controlled Adult acne on doxycycline Allergic rhinitis Benign paroxysmal positional vertigo No recent issues Chronic low back pain Essential hypertension History of basal cell cancer History of right breast cancer s/p right lumpectomy with LND (RUE limb restriction) Hyperlipidemia Hypothyroidism Osteoarthritis of right knee Osteoporosis Patella fracture (~1980) Left knee -- no surgerical intervention Rosacea Urinary incontinence Surgical History H/O ovarian cystectomy x2 History of cataract surgery R/L History of esophageal dilatation History of esophagogastroduodenoscopy (EGD) History of lumpectomy of right breast + LND History of surgical removal of skin lesion History of vitrectomy R/L S/P appendectomy S/P colonoscopy S/P hysterectomy ALEJANDRO & BSO Family History Mother Lung cancer Other No family history of adverse response to anesthesia Denies family history of Ovarian cancer Prostate cancer Myocardial infarction Breast cancer Colorectal cancer Stroke Social History Smoking Status: Former smoker Age Started Using Tobacco: 27; Age Quit Using Tobacco: 33; Smoking End Date: 1971 (very light use prior to quitting); Second Hand Exposure: Yes (Father smoked ); Do You Dip or Chew Tobacco: No; Tobacco Cessation Education Requested by Patient: No Hx Alcohol Use: Yes Alcohol type: wine Alcohol Intake Frequency: 2-3 x/Week Alcohol Intake Frequency Comment: 1 glass Hx Substance Use: No Preferred Language: Macedonian Communication Ability: Effective Visual Impairment: Limited Hearing Ability: Use of Hearing Aid Tafe Teacher Required: No Beliefs That Will Affect Care: None marital status: / Current Living Situation: Alone current occupational status: employed 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 How many Children do You have: 2 Other Information That Helps Us Care for You: No Feels Safe at Home: Yes Childhood Exposure to Second-Hand Smoke: Yes (father smoked ) Diet Comment: Regular diet caffeine: Yes (drinks tea daily) during the past year weight has: remained stable Dental Care, Regularly: Yes Physical Activity Frequency: Daily Seatbelt Use: always Sunscreen Use: Yes Do you think of yourself as: straight/heterosexual Assistive Devices: Walker Review of Systems Review of Systems: All systems reviewed & are unremarkable except as noted in Subjective Physical Exam Physical Exam: GENERAL: Patient in no acute distress. HEENT: Head is atraumatic, normocephalic. EOM's intact. Facies symmetric. No perioral cyanosis. NECK: No JVD. JVP is not elevated. Carotid upstrokes are + 2 bilaterally. No bruits are noted. CHEST/LUNGS: Clear to auscultation throughout all lung jorgensen. No wheezes, rales, or crackles. CVS: S1 and S2 are regular with at 1/6 basal systolic murmur heard best over the right 2nd intercostal space. No obvious diastolic murmurs. No gallops or rubs. PMI is nonpalpable. No lifts, heaves, or thrills. No abdominal aortic or renal bruits. ABDOMINAL EXAM: Bowel sounds are present. No masses, organomegaly, or tenderness. EXTREMITIES: No clubbing or cyanosis. No edema. Intact radial pulses bilaterally. Right knee is dressed. NEUROLOGIC EXAM: Patient is awake, alert, and oriented. Pleasant and natividad ative. Answers questions appropriately. Speech is clear. Gait pattern was not assessed. Results & Data Results & Data ([facility]) Vital Signs (Past 12 Hours) Vital Signs Temp Pulse Pulse Resp BP Pulse Ox 02/09/21 13:45 36.3 C L 65 16 112/69 98 02/09/21 13:21 36.7 C 71 18 120/66 98 02/09/21 12:25 36.5 C 58 L 16 122/69 98 02/09/21 12:15 58 L 16 126/68 98 02/09/21 12:05 60 16 107/73 98 02/09/21 11:55 61 16 117/68 98 02/09/21 11:45 93 H 16 107/70 98 02/09/21 11:39 36.1 C L 113 H 16 88/63 L 98 02/09/21 08:10 36.4 C L 56 L 18 178/73 H 96 Laboratory Results Laboratory Results - last 24 hr 02/09/21 02/09/21 Unknown Unknown COVID-19 Eval Order Covid19 [facility]Now [facility] SARS-CoV-2, RNA, NAAT NEGATIVE Diagnostic Findings X-RAY RIGHT KNEE 02/09/21: AP and crosstable lateral portable views of the right knee are obtained. A right knee arthroplasty is in near anatomic alignment. There has been undersurface remodeling of the patella. No acute fracture is seen. There are expected postoperative changes around the knee including skin clips, a surgical drain, soft tissue edema, and subcutaneous gas. IMPRESSION: -- Expected postoperative changes status post right knee arthroplasty. No acute fracture is seen. Medications Administered Medications glucosamine-chondroitin 250 mg-200 mg tablet 1 tab PO QAM 03/16/19 [History Confirmed 02/09/21] multivitamin 1 tab PO QAM 03/16/19 [History Confirmed 02/09/21] psyllium husk 0.4 gram capsule 0.4 g PO QPM cap 03/16/19 [History Confirmed 02/09/21] triamcinolone acetonide 55 mcg nasal spray aerosol 2 sprays INTRANASAL DAILY ml 03/16/19 [History Confirmed 02/09/21] calcium carbonate 600 mg (1,500 mg)-vitamin D3 400 unit tablet 1 tab PO BID tab 03/19/19 [History Confirmed 02/09/21] polyethylene glycol 3350 17 gram/dose oral powder 17 gm PO QAM PRN gm 03/19/19 [History Confirmed 02/09/21] doxycycline hyclate 50 mg capsule 50 mg PO DAILY 03/21/19 [History Confirmed 02/09/21] simvastatin 40 mg tablet 40 mg PO DAILY #90 tab 02/11/20 [Rx Confirmed 02/09/21] loratadine 10 mg tablet 10 mg PO QAM #30 tab 05/25/20 [History Confirmed 02/09/21] carboxymethylcellulose sodium 0.5 % eye drops in a dropperette 1 drp OPHTHALMIC (EYE) .COMPLEX ea 08/26/20 [History Confirmed 02/09/21] levothyroxine [Synthroid] 88 mcg PO QAM 01/03/21 [History Confirmed 02/09/21] pantoprazole [Protonix] 40 mg PO QAM 01/03/21 [History Confirmed 02/09/21] potassium chloride 20 meq PO QPM 01/03/21 [History Confirmed 02/09/21] potassium chloride 40 meq PO QAM 01/03/21 [History Confirmed 02/09/21] chlorthalidone 50 mg tablet 50 mg PO DAILY #90 tab 02/01/21 [Rx Confirmed 02/09/21] oxybutynin chloride 5 mg tablet 5 mg PO BID #180 tab 02/01/21 [Rx Confirmed 02/09/21] Home Medications Acetaminophen (Acetaminophen 500 Mg Tab) 1,000 mg PO PREOP MICHELLE Stop: 02/09/21 18:00 Last Admin: 02/09/21 07:42 Dose: 1,000 mg Documented by: Acetaminophen (Acetaminophen 500 Mg Tab) 1,000 mg PO Q8 MICHELLE Stop: 03/11/21 13:59 Artificial Tears (Artificial Tears) 1 drops OP Q4H PRN PRN Reason: dryness Stop: 03/11/21 13:59 Bisacodyl (Bisacodyl 10 Mg Supp) 10 mg WI DAILY PRN PRN Reason: Constipation Stop: 03/11/21 12:56 Chlorthalidone (Chlorthalidone 25 Mg Tab) 50 mg PO DAILY MICHELLE Stop: 03/12/21 08:59 Dexamethasone (Dexamethasone 4 Mg Tab) 8 mg PO PREOP MICHELLE Stop: 02/09/21 18:00 Last Admin: 02/09/21 07:42 Dose: 8 mg Documented by: Docusate Sodium (Docusate Sodium 100 Mg Cap) 100 mg PO BID MICHELLE Stop: 03/11/21 20:59 Doxycycline Hyclate (Doxycycline Hyclate 50 Mg Cap) 50 mg PO DAILY MICHELLE Stop: 03/12/21 08:59 Famotidine (Famotidine 20 Mg Tab) 20 mg PO PREOP MICHELLE Stop: 02/09/21 18:00 Last Admin: 02/09/21 07:43 Dose: 20 mg Documented by: Gabapentin (Gabapentin 300 Mg Cap) 300 mg PO PREOP MICHELLE Stop: 02/09/21 18:00 Last Admin: 02/09/21 07:42 Dose: 300 mg Documented by: Hydromorphone HCl (Hydromorphone Inj 0.5 Mg/0.5 Ml Syr) 0.5 mg IV Q4H PRN PRN Reason: Pain or Pre PT Stop: 02/23/21 12:56 Lactated Ringer's (Lr) 1,000 mls @ 15 mls/hr IV .Q24H MICHELLE Stop: 02/09/21 18:00 Last Infusion: 02/09/21 09:31 Dose: Infused Documented by: Cefazolin Sodium (Ancef 1000mg) 1,000 mg in 7.5 mls @ 2.5 mls/min IV PREOP [facility]; Protocol Stop: 02/09/21 18:00 Last Admin: 02/09/21 09:31 Dose: 2.5 mls/min Documented by: Tranexamic Acid (Tranexamic Acid / 0.7% Nacl) 1,000 mg in 100 mls @ 600 mls/hr IV TODAY@0600 MICHELLE Stop: 02/09/21 18:00 Last Infusion: 02/09/21 09:06 Dose: Infused Documented by: Tranexamic Acid (Tranexamic Acid / 0.7% Nacl) 1,000 mg in 100 mls @ 600 mls/hr IV TODAY@0600 [facility] Stop: 02/09/21 18:00 Last Infusion: 02/09/21 11:13 Dose: Infused Documented by: Cefazolin Sodium (Ancef 1000mg) 1,000 mg in 7.5 mls @ 2.5 mls/min IV Q8H [facility]; Protocol Stop: 02/10/21 01:32 Sodium Chloride (Nss 1000ml) 1,000 mls @ 100 mls/hr IV .Q10H MICHELLE Stop: 02/10/21 06:00 Levothyroxine Sodium (Levothyroxine Sodium 88 Mcg Tablet) 88 mcg PO DAILYBB MICHELLE Stop: 03/12/21 06:29 Loratadine (Loratadine 10 Mg Tab) 10 mg PO QAM MICHELLE Stop: 03/12/21 08:59 Magnesium Hydroxide (Magnesium Hydroxide Susp 30 Ml Udc) 30 ml PO Q6H PRN PRN Reason: Constipation Stop: 03/11/21 12:56 Metoclopramide HCl (Metoclopramide Hcl 10 Mg Tablet) 10 mg PO PREOP MICHELLE Stop: 02/09/21 18:00 Last Admin: 02/09/21 07:43 Dose: 10 mg Documented by: Metoclopramide HCl (Metoclopramide Hcl Inj 5 Mg/Ml 2 Ml Vial) 10 mg IV Q6H PRN PRN Reason: Nausea And Vomiting Stop: 03/11/21 12:56 Multivitamins (Multivitamin Tab) 1 tab PO QAM [facility] Stop: 03/12/21 08:59 Multivitamins/Minerals (Calcium 600mg + Vit D 400 Iu Tab) 1 tab PO BID [facility] Stop: 03/11/21 20:59 Naloxone HCl (Naloxone Hcl 0.4 Mg/1 Ml Vial/Carp) 0.1 mg IV Q5M PRN PRN Reason: Oversedation/Resp Depression Stop: 03/11/21 12:56 Ondansetron HCl (Ondansetron Inj 2 Mg/Ml 2 Ml Vial) 4 mg IV Q6H PRN PRN Reason: Nausea And Vomiting Stop: 03/11/21 12:56 Oxybutynin Chloride (Oxybutynin Chloride 5 Mg Tab) 5 mg PO BID [facility] Stop: 03/11/21 20:59 Oxycodone HCl (Oxycodone Hcl Ir 5 Mg Tab (Immediate Release)) 5 - 10 mg PO Q4H PRN PRN Reason: Pain or Pre PT Stop: 02/23/21 12:56 Pantoprazole Sodium (Pantoprazole 40 Mg Tab) 40 mg PO QAM [facility] Stop: 03/12/21 08:59 Polyethylene Glycol (Polyethylene (Miralax) 17 Gm Pack) 17 gm PO QAM PRN PRN Reason: constipation Stop: 03/11/21 12:56 Potassium Chloride (Potassium Chloride Crtab 20 Meq Tabcr) 20 meq PO QPM [facility] Stop: 03/11/21 20:59 Potassium Chloride (Potassium Chloride Crtab 20 Meq Tabcr) 40 meq PO QAM [facility] Stop: 03/12/21 08:59 Psyllium Hydrophilic Mucilloid (Psyllium 58.6% Powder Packet) 1 pkt PO QPM [facility] Stop: 03/11/21 20:59 Rivaroxaban (Rivaroxaban 10 Mg Tablet) 10 mg PO DAILY [facility] Stop: 02/21/21 09:01 Sennosides (Senna 8.6 Mg Tab) 17.2 mg PO HS [facility] Stop: 03/11/21 20:59 Simvastatin (Simvastatin 40 Mg Tab) 40 mg PO DAILY [facility]LE Stop: 03/12/21 08:59 Triamcinolone Acetonide (Triamcinolone Acet Nasal [place] 10.8ml Btl) 2 sprays NA DAILY MICHELLE Stop: 03/12/21 08:59 PG Care Time/CCT Total # of Minutes Spent Total Time Spent with Patient: Total time spent is greater than 50% in coordination of care (as documented) at patient's floor/unit and/or counseling patient:30 Coding Level of Care Code 49417 Inpt Consult Level 4 Diagnoses Primary osteoarthritis of right knee M17.11 Essential hypertension I10 Hyperlipidemia E78.5 Acid reflux K21.9 Time Spent (min) 40
[2021-02-09] MEDS: ACETAMINOPHEN 500 MG TAB PO SCH ×2 (14:39→21:11)
[2021-02-09] MEDS: SODIUM CHLORIDE 0.9% 1000ML 1,000 ML IV SCH (14:40)
[2021-02-09] MEDS: oxyCODONE HCL IR 5 MG TAB (IMMEDIATE RELEASE) PO PRN ×2 (15:11→22:20)
[2021-02-09] MEDS: ceFAZolin 1000MG 1,000 MG/7.5 ML SYR IV SCH (16:53)
[2021-02-09] MEDS: OXYBUTYNIN CHLORIDE 5 MG TAB PO SCH (21:11)
[2021-02-09] MEDS: DOCUSATE SODIUM 100 MG CAP PO SCH (21:12)
[2021-02-09] MEDS: POTASSIUM CHLORIDE CRTAB 20 MEQ TABCR PO SCH (21:12)
[2021-02-09] MEDS: CALCIUM 600MG + VIT D 400 IU TAB PO SCH (21:12)
[2021-02-09] MEDS: PSYLLIUM 58.6% POWDER PACKET PO SCH (21:13)
[2021-02-09] MEDS: SENNA 8.6 MG TAB PO SCH (21:13)
[2021-02-10] MEDS: SODIUM CHLORIDE 0.9% 1000ML 1,000 ML IV SCH (00:22)
[2021-02-10] MEDS: ceFAZolin 1000MG 1,000 MG/7.5 ML SYR IV SCH (02:28)
[2021-02-10] MEDS: LEVOTHYROXINE SODIUM 88 MCG TABLET PO SCH (05:40)
[2021-02-10] MEDS: ACETAMINOPHEN 500 MG TAB PO SCH ×3 (05:40→21:49)
[2021-02-10 06:24] LABS: Hemoglobin 11.8 g/dL (12.0-16.0); Mean Corpuscular Hemoglobin 31.6 pg (25-34); Mean Corpuscular Hgb Conc 34.7 g/dL (32-36); Mean Corpuscular Volume 91.2 fL (80-100); Mean Platelet Volume 9.6 fL (7.4-10.4); Platelet Count 277 K/uL (130-400); RDW Coefficient of Variation 12.5 % (11.5-14.5); RDW Standard Deviation 42.3 fL (36.4-46.3); Red Blood Count 3.73 M/uL (4.2-5.4); White Blood Count 12.04 K/uL (4.8-10.8)
[2021-02-10 06:56] LABS: BUN Creatinine Ratio 40.1 (10-20); Calcium 8.9 mg/dl (8.5-10.1); Creatinine Clr Calc Pharmacy 77.3 ml/min; Est GFR (African American) 102.9 ml/min; Est GFR (Non-African American) 88.8 ml/min; Potassium 3.4 mmol/L (3.5-5.1)
--- NOTE | 2021-02-10 08:29 | Anesthesiology Progress Note ---
Date of Service February 10, 2021 Anesthesia Post Procedure Vital Signs Vital Signs: Temp Pulse Pulse Resp BP Pulse Ox 02/10/21 07:20 36.5 C 61 16 115/60 93 02/10/21 02:30 36.3 C L 60 16 116/65 92 02/09/21 22:14 36.8 C 83 16 118/67 91 02/09/21 19:00 36.8 C 71 16 107/64 92 02/09/21 16:16 36.5 C 56 L 20 127/71 98 02/09/21 14:41 36.3 C L 70 16 116/72 98 02/09/21 13:45 36.3 C L 65 16 112/69 98 02/09/21 13:21 36.7 C 71 18 120/66 98 02/09/21 12:25 36.5 C 58 L 16 122/69 98 02/09/21 12:15 58 L 16 126/68 98 02/09/21 12:05 60 16 107/73 98 02/09/21 11:55 61 16 117/68 98 02/09/21 11:45 93 H 16 107/70 98 02/09/21 11:39 36.1 C L 113 H 16 88/63 L 98 Pain Intensity Right Knee: Pain Intensity: 5 Notes Mental Status: alert / awake / arousable and participated in evaluation Patient Amnestic to Procedure: Yes Nausea / Vomiting: adequately controlled Pain: adequately controlled Airway Patency, RR, SpO2: stable & adequate BP & HR: stable & adequate Hydration State: stable & adequate Neuraxial Anesthesia: was administered and sensory block resolved Anesthetic Complications: no major complications apparent
[2021-02-10] MEDS ORDERED: MULTIVITAMIN TAB PO SCH (09:00)
[2021-02-10] MEDS ORDERED: NON-FORMULARY MEDICATION (Glucosamine-Chondroitin [Osteo Bi-Flex] 250-200 mg tablet) PO SCH (09:00)
[2021-02-10] MEDS ORDERED: SIMVASTATIN 40 MG TAB PO SCH (09:00)
[2021-02-10] MEDS: oxyCODONE HCL IR 5 MG TAB (IMMEDIATE RELEASE) PO PRN ×2 (09:05→18:46)
[2021-02-10] MEDS: TRIAMCINOLONE ACET NASAL SPRAY 10.8ML BTL SCH (09:07)
[2021-02-10] MEDS: CHLORTHALIDONE 25 MG TAB PO SCH (09:08)
[2021-02-10] MEDS: RIVAROXABAN 10 MG TABLET PO SCH (09:08)
[2021-02-10] MEDS: DOXYCYCLINE HYCLATE 50 MG CAP PO SCH (09:08)
[2021-02-10] MEDS: PANTOprazole 40 MG TAB PO SCH (09:08)
[2021-02-10] MEDS: MULTIVITAMIN TAB PO SCH (09:08)
[2021-02-10] MEDS: OXYBUTYNIN CHLORIDE 5 MG TAB PO SCH ×2 (09:08→20:25)
[2021-02-10] MEDS: CALCIUM 600MG + VIT D 400 IU TAB PO SCH ×2 (09:08→20:27)
[2021-02-10] MEDS: DOCUSATE SODIUM 100 MG CAP PO SCH ×2 (09:08→20:26)
[2021-02-10] MEDS: LORATADINE 10 MG TAB PO SCH (09:08)
[2021-02-10] MEDS: POTASSIUM CHLORIDE CRTAB 20 MEQ TABCR PO SCH ×2 (09:09→20:25)
[2021-02-10] MEDS ORDERED: Nursing to Pharmacy Communication SCH (09:15)
--- NOTE | 2021-02-10 10:04 | Orthopedic Progress Note ---
Date of Service February 10, 2021 Assessment & Plan (1) Primary osteoarthritis of right knee: Postop day 1 status post right total knee arthroplasty. PT/OT protocols. Weightbearing as tolerated. DVT prophylaxis-rivaroxaban, SCDs Pain management as written. DC planning-patient is planning for residential facility. Case management has spoken to the patient and is currently getting authorizations. Admission and Anticipated Discharge Date Admission Date: February 09, 2021 Supervising Physician Co-Signing Physician Notes Patient seen and examined. Agree with GATO Vizcaino's note as above. Patient is resting comfortably. Denies significant pain in her knee. She has been ambulating for short distances, but does live alone. Plan for residential facility at discharge. Subjective Postop day 1 Patient is sitting up in her chair at the bedside. She complains of pain in the operative knee this morning. She states that nursing was going to get her some pain medications at that point in time. No other complaints this morning. Denies shortness of breath, chest pain, lightheadedness. She states that Case management was in to speak with her and she is planning on going to a skilled facility upon discharge. Patient states that she lives alone and think that would be a better option for her. Physical Exam Physical Exam: Dressings are clean, dry, and intact. Calves are soft and no ntender. Neurovascular is intact. Toes are mobile. She has good dorsiflexion and plantarflexion of the operative side. Minimal Hemovac drainage. Results & Data ([facility]) Vital Signs (Past 12 Hours) Vital Signs Temp Pulse Resp BP Pulse Ox 02/10/21 07:20 36.5 C 61 16 115/60 93 02/10/21 02:30 36.3 C L 60 16 116/65 92 02/09/21 22:14 36.8 C 83 16 118/67 91 Laboratory Results 02/10/21 02/10/21 Range/Units 05:14 05:14 WBC 12.04 H (4.8-10.8) K/uL RBC 3.73 L (4.2-5.4) M/uL Hgb 11.8 L (12.0-16.0) g/dL Hct 34.0 L (37-47) % MCV 91.2 (80-100) fL MCH 31.6 (25-34) pg MCHC 34.7 (32-36) g/dL RDW Std Deviation 42.3 (36.4-46.3) fL RDW Coeff of Luisa 12.5 (11.5-14.5) % Plt Count 277 (130-400) K/uL MPV 9.6 (7.4-10.4) fL Sodium 141 (136-145) mmol/L Potassium 3.4 L (3.5-5.1) mmol/L Chloride 108 H (98-107) mmol/L Carbon Dioxide 28 (21-32) mmol/L Anion Gap 5.0 (3-11) BUN 19 H (7-18) mg/dl Creatinine 0.48 L (0.6-1.2) mg/dl Est Cr Clr Drug Dosing 77.3 ml/min Est GFR ( Amer) 102.9 ml/min Est GFR (Non-Af Amer) 88.8 ml/min BUN/Creatinine Ratio 40.1 H (10-20) Glucose 119 H (70-99) mg/dl Calcium 8.9 (8.5-10.1) mg/dl
--- NOTE | 2021-02-10 10:16 | Hospitalist Progress Note ---
Date of Service February 10, 2021 Assessment & Plan (1) Primary osteoarthritis of right knee: POD#1 Right TKA. Mrs. Sigala is an 85-year-old female with a history of Hypertension, Hyperlipidemia, Hypothyroidism, Osteoporosis, GERD, Benign Paroxysmal Positional Vertigo, and DJD of the Right Knee who is POD#1 s/p Right TKA. Patient is currently being seen in room 303 and she is sitting in a bedside chair. She has increased right knee pain today, but it has been responding to medications. Angela rock has not had any post anesthesia complications. She has developed a postoperative anemia with a Hgb of 11.8 g/dl -- she was made aware of this. Patient is hemodynamically stable. Her blood pressure is well controlled. 1. Analgesic for pain control as ordered by Ortho. 2. Continue DVT prophylaxis. 3. PT and OT evaluations. 4. Monitor daily CBC, BMP. 5. Ambulate in room with assistance. [facility] Hospitalists will sign off of this case. Please contact us if any medical issues arise. (2) Essential hypertension: Blood pressure appears to be controlled. -- Continue Chlorthalidone 50 mg daily. -- Continue Potassium Chloride 40 mEq each morning and 20 mEq each evening. -- Hold diuretic for systolic blood pressure less than 110 mmHg. -- Monitor daily BMP. (3) Hyperlipidemia: Fasting Lipid Panel from November 2020 shows a Total Cholesterol of 146 mg/dL, HDL 53 mg/dL, and LDL 66 mg/dL. -- Continue Simvastatin 40 mg daily. (4) Acid reflux: Controlled. -- Continue Protonix 40 mg daily. Admission and Anticipated Discharge Date Admission Date: February 10, 2021 Subjective Mrs. Sigala is POD #1 Right TKA. Patient being seen in room 303. She complains of increased knee pain today, but just received Oxycodone moments before I entered the room. This has helped with her pain. Patient offers no other complaints. Patient has developed a postoperative anemia -- but she is asymptomatic. Review of Systems Review of Systems: All systems reviewed & are unremarkable except as noted in Subjective Physical Exam Physical Exam: GENERAL: Patient in no acute distress, sitting in a bedside chair. HEENT: Head is atraumatic, normocephalic. EOM's intact. Facies symmetric. No perioral cyanosis. NECK: No JVD. JVP is not elevated. Carotid upstrokes are + 2 bilaterally. No bruits are noted. CHEST/LUNGS: Clear to auscultation throughout all lung jorgensen. No wheezes, rales, or crackles. CVS: S1 and S2 are regular with at 1/6 basal systolic murmur heard best over the right 2nd intercostal space. No obvious diastolic murmurs. No gallops or rubs. PMI is nonpalpable. No lifts, heaves, or thrills. No abdominal aortic or renal bruits. ABDOMINAL EXAM: Bowel sounds are present. No masses, organomegaly, or tenderness. EXTREMITIES: No clubbing or cyanosis. No edema. Intact radial pulses bilaterally. Right knee is dressed, surgical drain is in place. Calves are soft, non-tender. NEUROLOGIC EXAM: Patient is awake, alert, and oriented. Pleasant and cooperative. Answers questions appropriately. Speech is clear. Gait pattern was not assessed. Results & Data Results & Data ([facility]) Vital Signs (Past 12 Hours) Vital Signs Temp Pulse Resp BP Pulse Ox 02/10/21 07:20 36.5 C 61 16 115/60 93 02/10/21 02:30 36.3 C L 60 16 116/65 92 02/09/21 22:14 36.8 C 83 16 118/67 91 Laboratory Results Laboratory Results - last 24 hr 02/10/21 02/10/21 05:14 05:14 WBC 12.04 H RBC 3.73 L Hgb 11.8 L Hct 34.0 L MCV 91.2 MCH 31.6 MCHC 34.7 RDW Std Deviation 42.3 RDW Coeff of Luisa 12.5 Plt Count 277 MPV 9.6 Sodium 141 Potassium 3.4 L Chloride 108 H Carbon Dioxide 28 Anion Gap 5.0 BUN 19 H Creatinine 0.48 L Est Cr Clr Drug Dosing 77.3 Est GFR ( Amer) 102.9 Est GFR (Non-Af Amer) 88.8 BUN/Creatinine Ratio 40.1 H Glucose 119 H Calcium 8.9 Diagnostic Findings KNEE X-RAY 02/09/21: AP and crosstable lateral portable views of the right knee are obtained. A right knee arthroplasty is in near anatomic alignment. There has been undersurface remodeling of the patella. No acute fracture is seen. There are expected postoperative changes around the knee including skin clips, a surgical drain, soft tissue edema, and subcutaneous gas. IMPRESSION: -- Expected postoperative changes status post right knee arthroplasty. -- No acute fracture is seen. Medications Administered Medications glucosamine-chondroitin 250 mg-200 mg tablet 1 tab PO QAM 03/16/19 [History Confirmed 02/09/21] multivitamin 1 tab PO QAM 03/16/19 [History Confirmed 02/09/21] psyllium husk 0.4 gram capsule 0.4 g PO QPM cap 03/16/19 [History Confirmed 02/09/21] triamcinolone acetonide 55 mcg nasal spray aerosol 2 sprays INTRANASAL DAILY ml 03/16/19 [History Confirmed 02/09/21] calcium carbonate 600 mg (1,500 mg)-vitamin D3 400 unit tablet 1 tab PO BID tab 03/19/19 [History Confirmed 02/09/21] polyethylene glycol 3350 17 gram/dose oral powder 17 gm PO QAM PRN gm 03/19/19 [History Confirmed 02/09/21] doxycycline hyclate 50 mg capsule 50 mg PO DAILY 03/21/19 [History Confirmed 02/09/21] simvastatin 40 mg tablet 40 mg PO DAILY #90 tab 02/11/20 [Rx Confirmed 02/09/21] loratadine 10 mg tablet 10 mg PO QAM #30 tab 05/25/20 [History Confirmed 02/09/21] carboxymethylcellulose sodium 0.5 % eye drops in a dropperette 1 drp OPHTHALMIC (EYE) .COMPLEX ea 08/26/20 [History Confirmed 02/09/21] levothyroxine [Synthroid] 88 mcg PO QAM 01/03/21 [History Confirmed 02/09/21] pantoprazole [Protonix] 40 mg PO QAM 01/03/21 [History Confirmed 02/09/21] potassium chloride 20 meq PO QPM 01/03/21 [History Confirmed 02/09/21] potassium chloride 40 meq PO QAM 01/03/21 [History Confirmed 02/09/21] chlorthalidone 50 mg tablet 50 mg PO DAILY #90 tab 02/01/21 [Rx Confirmed 02/09/21] oxybutynin chloride 5 mg tablet 5 mg PO BID #180 tab 02/01/21 [Rx Confirmed 02/09/21] acetaminophen 1,000 mg PO Q8 14 Days #84 tab 02/09/21 [Rx] Home Medications Acetaminophen (Acetaminophen 500 Mg Tab) 1,000 mg PO Q8 [facility] Stop: 03/11/21 13:59 Last Admin: 02/10/21 05:40 Dose: 1,000 mg Documented by: Artificial Tears (Artificial Tears) 1 drops OP Q4H PRN PRN Reason: dryness Stop: 03/11/21 13:59 Bisacodyl (Bisacodyl 10 Mg Supp) 10 mg [place] DAILY PRN PRN Reason: Constipation Stop: 03/11/21 12:56 Chlorthalidone (Chlorthalidone 25 Mg Tab) 50 mg PO DAILY [facility] Stop: 03/12/21 08:59 Last Admin: 02/10/21 09:08 Dose: 50 mg Documented by: Docusate Sodium (Docusate Sodium 100 Mg Cap) 100 mg PO BID [facility] Stop: 03/11/21 20:59 Last Admin: 02/10/21 09:08 Dose: 100 mg Documented by: Doxycycline Hyclate (Doxycycline Hyclate 50 Mg Cap) 50 mg PO DAILY [facility] Stop: 03/12/21 08:59 Last Admin: 02/10/21 09:08 Dose: 50 mg Documented by: Hydromorphone HCl (Hydromorphone Inj 0.5 Mg/0.5 Ml Syr) 0.5 mg IV Q4H PRN PRN Reason: Pain or Pre PT Stop: 02/23/21 12:56 Levothyroxine Sodium (Levothyroxine Sodium 88 Mcg Tablet) 88 mcg PO DAILYBB [facility] Stop: 03/12/21 06:29 Last Admin: 02/10/21 05:40 Dose: 88 mcg Documented by: Loratadine (Loratadine 10 Mg Tab) 10 mg PO QAM [facility] Stop: 03/12/21 08:59 Last Admin: 02/10/21 09:08 Dose: 10 mg Documented by: Magnesium Hydroxide (Magnesium Hydroxide Susp 30 Ml Udc) 30 ml PO Q6H PRN PRN Reason: Constipation Stop: 03/11/21 12:56 Metoclopramide HCl (Metoclopramide Hcl Inj 5 Mg/Ml 2 Ml Vial) 10 mg IV Q6H PRN PRN Reason: Nausea And Vomiting Stop: 03/11/21 12:56 Multivitamins (Multivitamin Tab) 1 tab PO QAM [facility] Stop: 03/12/21 08:59 Last Admin: 02/10/21 09:08 Dose: 1 tab Documented by: Multivitamins/Minerals (Calcium 600mg + Vit D 400 Iu Tab) 1 tab PO BID [facility] Stop: 03/11/21 20:59 Last Admin: 02/10/21 09:08 Dose: 1 tab Documented by: Naloxone HCl (Naloxone Hcl 0.4 Mg/1 Ml Vial/Carp) 0.1 mg IV Q5M PRN PRN Reason: Oversedation/Resp Depression Stop: 03/11/21 12:56 Ondansetron HCl (Ondansetron Inj 2 Mg/Ml 2 Ml Vial) 4 mg IV Q6H PRN PRN Reason: Nausea And Vomiting Stop: 03/11/21 12:56 Oxybutynin Chloride (Oxybutynin Chloride 5 Mg Tab) 5 mg PO BID [facility] Stop: 03/11/21 20:59 Last Admin: 02/10/21 09:08 Dose: 5 mg Documented by: Oxycodone HCl (Oxycodone Hcl Ir 5 Mg Tab (Immediate Release)) 5 - 10 mg PO Q4H PRN PRN Reason: Pain or Pre PT Stop: 02/23/21 12:56 Last Admin: 02/10/21 09:05 Dose: 10 mg Documented by: Pantoprazole Sodium (Pantoprazole 40 Mg Tab) 40 mg PO QAM [facility]HEL[facility] Stop: 03/12/21 08:59 Last Admin: 02/10/21 09:08 Dose: 40 mg Documented by: Polyethylene Glycol (Polyethylene (Miralax) 17 Gm Pack) 17 gm PO QAM PRN PRN Reason: constipation Stop: 03/11/21 12:56 Potassium Chloride (Potassium Chloride Crtab 20 Meq Tabcr) 20 meq PO QPM [facility]HELLE Stop: 03/11/21 20:59 Last Admin: 02/09/21 21:12 Dose: 20 meq Documented by: Potassium Chloride (Potassium Chloride Crtab 20 Meq Tabcr) 40 meq PO QAM [facility]HELLE Stop: 03/12/21 08:59 Last Admin: 02/10/21 09:09 Dose: 40 meq Documented by: Psyllium Hydrophilic Mucilloid (Psyllium 58.6% Powder Packet) 1 pkt PO QPM [facility]HEL[facility] Stop: 03/11/21 20:59 Last Admin: 02/09/21 21:13 Dose: 1 pkt Documented by: Rivaroxaban (Rivaroxaban 10 Mg Tablet) 10 mg PO DAILY [facility] Stop: 02/21/21 09:01 Last Admin: 02/10/21 09:08 Dose: 10 mg Documented by: Sennosides (Senna 8.6 Mg Tab) 17.2 mg PO HS MICHELLE Stop: 03/11/21 20:59 Last Admin: 02/09/21 21:13 Dose: 17.2 mg Documented by: Simvastatin (Simvastatin 40 Mg Tab) 40 mg PO HS MICHELLE Stop: 03/12/21 08:59 Triamcinolone Acetonide (Triamcinolone Acet Nasal [place] 10.8ml Btl) 2 sprays NA DAILY MICHELLE Stop: 03/12/21 08:59 Last Admin: 02/10/21 09:07 Dose: 2 sprays Documented by: PG Care Time/CCT Total # of Minutes Spent Total Time Spent with Patient: Total time spent is greater than 50% in coordination of care (as documented) at patient's floor/unit and/or counseling patient:20 Coding Level of Care Code 60954 Subseq Hosp Care Lvl 3 Diagnoses Primary osteoarthritis of right knee M17.11 Essential hypertension I10 Hyperlipidemia E78.5 Acid reflux K21.9 Time Spent (min) 35
[2021-02-10] MEDS: SENNA 8.6 MG TAB PO SCH (20:26)
[2021-02-10] MEDS: SIMVASTATIN 40 MG TAB PO SCH (20:26)
[2021-02-10] MEDS: PSYLLIUM 58.6% POWDER PACKET PO SCH (20:26)
[2021-02-11] MEDS: ACETAMINOPHEN 500 MG TAB PO SCH ×3 (06:07→21:36)
[2021-02-11] MEDS: LEVOTHYROXINE SODIUM 88 MCG TABLET PO SCH (06:07)
[2021-02-11 06:09] LABS: Hematocrit (blood only) 31.3 % (37-47); Mean Corpuscular Hemoglobin 31.4 pg (25-34); Mean Corpuscular Hgb Conc 35.1 g/dL (32-36); Mean Corpuscular Volume 89.4 fL (80-100); Mean Platelet Volume 9.2 fL (7.4-10.4); Platelet Count 258 K/uL (130-400); RDW Coefficient of Variation 12.8 % (11.5-14.5); RDW Standard Deviation 41.2 fL (36.4-46.3); White Blood Count 9.42 K/uL (4.8-10.8)
[2021-02-11 06:37] LABS: BUN Creatinine Ratio 41.8 (10-20); Calcium 8.9 mg/dl (8.5-10.1); Creatinine Clr Calc Pharmacy 90.5 ml/min; Est GFR (African American) 108.4 ml/min; Est GFR (Non-African American) 93.5 ml/min; Potassium 3.6 mmol/L (3.5-5.1)
--- NOTE | 2021-02-11 07:05 | Orthopedic Progress Note ---
Date of Service February 11, 2021 Assessment & Plan (1) Primary osteoarthritis of right knee: Postop day 2 status post right total knee arthroplasty. PT/OT protocols. Weightbearing as tolerated. DVT prophylaxis-rivaroxaban, SCDs Pain management as written. AM labs-Hgb 11 this morning stable acute blood loss anemia due t surgical loss/dilutional. Mild leukocytosis yesterday likely due to surgical stress/perioperative steroids, resolved. DC planning-patient is planning for nursing home facility. Patient planning on d/c to [place]. They can accept patient tomorrow. Admission and Anticipated Discharge Date Admission Date: February 10, 2021 Subjective Patient resting in bed comfortably. Pain controlled. No other complaints. Denies chest pain, sob, fever, chills, n/v/d Review of Systems Review of Systems: All systems reviewed & are unremarkable except as noted in Subjective Physical Exam Physical Exam: Dressing to right knee is c/d/i, mild drainage in window of JEANNIE. Dressing to hemovac site clean and intact. Mild ecchymosis about the knee. Distally n/v status and sensation intact. No calf tenderness. Toes mobile with good dorsiflexion. Constitutional: well developed and well nourished; no acute distress Results & Data ([facility]) Vital Signs (Past 12 Hours) Vital Signs Temp Pulse Resp BP Pulse Ox 02/10/21 23:00 36.9 C 76 18 157/73 H 93 Laboratory Results H & H 01/10/21 02/10/21 02/11/21 Range/Units 10:58 05:14 05:34 WBC 5.72 12.04 H 9.42 (4.8-10.8) K/uL Hgb 14.2 11.8 L 11.0 L (12.0-16.0) g/dL Hct 40.5 34.0 L 31.3 L (37-47) % Coagulation 01/10/21 Range/Units 10:58 INR 1.0 (0.9-1.1)
[2021-02-11] MEDS: CALCIUM 600MG + VIT D 400 IU TAB PO SCH ×2 (08:33→21:30)
[2021-02-11] MEDS: DOCUSATE SODIUM 100 MG CAP PO SCH ×2 (08:34→21:31)
[2021-02-11] MEDS: CHLORTHALIDONE 25 MG TAB PO SCH (08:34)
[2021-02-11] MEDS: MULTIVITAMIN TAB PO SCH (08:35)
[2021-02-11] MEDS: DOXYCYCLINE HYCLATE 50 MG CAP PO SCH (08:35)
[2021-02-11] MEDS: LORATADINE 10 MG TAB PO SCH (08:35)
[2021-02-11] MEDS: PANTOprazole 40 MG TAB PO SCH (08:36)
[2021-02-11] MEDS: OXYBUTYNIN CHLORIDE 5 MG TAB PO SCH ×2 (08:36→21:36)
[2021-02-11] MEDS: RIVAROXABAN 10 MG TABLET PO SCH (08:37)
[2021-02-11] MEDS: POTASSIUM CHLORIDE CRTAB 20 MEQ TABCR PO SCH ×2 (08:37→21:31)
[2021-02-11] MEDS: TRIAMCINOLONE ACET NASAL SPRAY 10.8ML BTL SCH (08:37)
[2021-02-11] MEDS: oxyCODONE HCL IR 5 MG TAB (IMMEDIATE RELEASE) PO PRN ×3 (08:57→19:56)
[2021-02-11] MEDS: PSYLLIUM 58.6% POWDER PACKET PO SCH (21:29)
[2021-02-11] MEDS: SIMVASTATIN 40 MG TAB PO SCH (21:30)
[2021-02-11] MEDS: SENNA 8.6 MG TAB PO SCH (21:30)
[2021-02-12 00:14] LABS: Appearance Urine Clear (Clear); Bilirubin Urine Negative (Negative); Blood Urine Negative (Negative); Color Urine Yellow; Glucose Urine UA Negative (Negative); Ketones Urine Negative (Negative); Leukocyte Esterase Urine Negative (Negative); Nitrite Urine Negative (Negative); Protein Urine Negative (Negative); Specific Gravity Urine 1.014 (1.000-1.030); Urobilinogen Urine Negative (Negative)
[2021-02-12] MEDS: oxyCODONE HCL IR 5 MG TAB (IMMEDIATE RELEASE) PO PRN ×2 (02:06→07:28)
[2021-02-12] MEDS: LEVOTHYROXINE SODIUM 88 MCG TABLET PO SCH (05:23)
[2021-02-12] MEDS: ACETAMINOPHEN 500 MG TAB PO SCH (05:23)
[2021-02-12] MEDS: CALCIUM 600MG + VIT D 400 IU TAB PO SCH (07:29)
[2021-02-12] MEDS: LORATADINE 10 MG TAB PO SCH (07:29)
[2021-02-12] MEDS: MULTIVITAMIN TAB PO SCH (07:29)
[2021-02-12] MEDS: DOCUSATE SODIUM 100 MG CAP PO SCH (07:30)
[2021-02-12] MEDS: POTASSIUM CHLORIDE CRTAB 20 MEQ TABCR PO SCH (07:30)
[2021-02-12] MEDS: CHLORTHALIDONE 25 MG TAB PO SCH (07:31)
[2021-02-12] MEDS: RIVAROXABAN 10 MG TABLET PO SCH (07:31)
[2021-02-12] MEDS: PANTOprazole 40 MG TAB PO SCH (07:31)
[2021-02-12] MEDS: DOXYCYCLINE HYCLATE 50 MG CAP PO SCH (07:31)
[2021-02-12] MEDS: TRIAMCINOLONE ACET NASAL SPRAY 10.8ML BTL SCH (07:32)
--- NOTE | 2021-02-12 08:32 | Orthopedic Progress Note ---
Date of Service February 12, 2021 Assessment & Plan (1) Status post right knee replacement: Admission and Anticipated Discharge Date Admission Date: February 10, 2021 85 yo female stable POD #3 s/p right TKA 1. Med management 2. DVT prophylaxis- MIRIAM [place] 3. PT/OT 4. D/C planning- d/c to [place] Subjective Pt resting in chair, denies complaints, pain controlled Physical Exam Physical Exam: JEANNIE dressing in place, toes mobile, NVI, calf soft nontender Results & Data ([facility]) Vital Signs (Past 12 Hours) Vital Signs Temp Pulse Resp BP Pulse Ox 02/12/21 06:12 37.1 C 78 16 118/66 91 02/11/21 22:59 37.1 C 96 H 16 153/84 H 93 Laboratory Results 02/11/21 02/11/21 02/11/21 Range/Units 23:30 10:59 10:59 Urine Color Yellow Urine Appearance Clear (Clear) Urine pH 7.0 (4.5-7.5) Ur Specific [place] 1.014 (1.000-1.030) Urine Protein Negative (Negative) Urine Glucose (UA) Negative (Negative) Urine Ketones Negative (Negative) Urine Blood Negative (Negative) Urine Nitrite Negative (Negative) Urine Bilirubin Negative (Negative) Urine Urobilinogen Negative (Negative) Ur Leukocyte Esterase Negative (Negative) COVID-19 Eval Order Covid19 [facility]Now [facility] SARS-CoV-2, RNA, NAAT NEGATIVE (NEGATIVE)
[2021-02-12] MEDS: OXYBUTYNIN CHLORIDE 5 MG TAB PO SCH (08:55)
--- NOTE | 2021-02-12 13:56 | Discharge Summary ---
Date of Service February 12, 2021 Admission HPI Per Admitting Provider 85 year old female with PMHx significant for GERD, BPPV, HTN, high cholesterol, hx of breast Ca and BCC, hypothyroidism who presents with longstanding right knee pain. Pain interfering with her ability to carry out daily activities and leisure activities. She is unable to take NSAIDs due to allergy. Has failed other conservative measures including Tylenol and injections. She would like to proceed with knee replacement. Patient denies headaches, sweats, fevers, chills, double vision, blurred vision, cough, sore throat, dysphagia, chest pain, sob, wheezing, n/v/d/c, numbness, tingling, fatigue, urinary symptoms, mood disorders. ROS positive for right knee pain and stiffness. Admission Exam Per Admitting Provider Constitutional: well developed and well nourished; no acute distress Eyes: PERRL, conjunctivae normal, anicteric sclerae ENMT: external ear and nose normal, oropharynx normal Neck: trachea midline, no thyromegaly Respiratory: normal respiratory effort, lungs clear to auscultation Cardiovascular: RRR, no murmur, no edema Musculoskeletal: Right knee: Valgus alignment. Mild effusion. Tenderness lateral and medial joint line. Mild crepitation. Positive Ivan's. Laxity with valgus stress, negative varus stress. ROM 10-130 degrees Skin: no rashes, warm and dry Neurologic: patellar DTR's 2+ bilat, sensation intact Psychiatric: A+Ox3, euthymic affect Principal Diagnosis Right knee osteoarthritis Discharge Exam Constitutional well developed and well nourished; no acute distress Eyes PERRL, conjunctivae normal, anicteric sclerae ENMT external ear and nose normal, oropharynx normal Neck trachea midline, no thyromegaly Respiratory normal respiratory effort, lungs clear to auscultation Cardiovascular RRR, no murmur, no edema Skin no rashes, warm and dry Neurologic patellar DTR's 2+ bilat, sensation intact Psychiatric A+Ox3, euthymic affect Discharge Data Allergies Allergy/AdvReac Type Severity Reaction Status Date / Time aspirin Allergy Unknown Mouth and Verified 02/09/21 08:03 tongue swelling ibuprofen Allergy Unknown Mouth Verified 02/09/21 08:03 swelling naproxen Allergy Unknown Anaphylaxis Verified 02/09/21 08:03 propoxyphene AdvReac Unknown Nausea Verified 02/09/21 08:03 Consultations 02/04/21 15:11 Consult Hospitalist Routine Procedures Performed Operation Date: 02/09/21 09:30 Actual Procedures p Right Total Knee Arthroplasty(Right) - Paulino Hill MD Ordered Studies 02/09/21 05:00 US - OR guided needle placemen Routine Hospital Course (1) Status post right knee replacement: Patient presented for same day admission following right total knee arthroplasty on 02/09/21. She tolerated procedure well. The Patient had an uneventful hospital course. Post-operatively, her activity was progressed and well tolerated. They participated in PT with ambulation distance of 60 feet x 2, 20 feet on POD#2. ROM of operative knee reached 85 degrees. Labs remained stable- lowest hemoglobin recorded: 11.0. Dr. Michael Loera of medical service was consulted for medical management during admission. Pain controlled on oral medications. Please refer to daily progress notes and PT notes for complete details. After exam on 02/12/21, patient was felt to be stable for discharge to [facility]. She was placed on Xarelto post operatively for DVT prophylaxis. Patient will f/u in the office in about 2 weeks for further evaluation including x-rays and incision check, sooner if having any issues or concerns. Lab Results 01/10/21 01/10/21 01/10/21 Range/Units 10:58 10:58 10:58 WBC 5.72 (4.8-10.8) K/uL RBC 4.50 (4.2-5.4) M/uL Hgb 14.2 (12.0-16.0) g/dL Hct 40.5 (37-47) % MCV 90.0 (80-100) fL MCH 31.6 (25-34) pg MCHC 35.1 (32-36) g/dL RDW Std Deviation 40.6 (36.4-46.3) fL RDW Coeff of Luisa 12.5 (11.5-14.5) % Plt Count 274 (130-400) K/uL MPV 9.5 (7.4-10.4) fL Immature Gran % (Auto) 0.0 % Neut % (Auto) 48.4 % Lymph % (Auto) 35.7 % [place] % (Auto) 10.0 % Eos % (Auto) 5.6 % Baso % (Auto) 0.3 % Neut # (Auto) 2.77 (1.4-6.5) K/uL Lymph # (Auto) 2.04 (1.2-3.4) K/uL [place] # (Auto) 0.57 (0.11-0.59) K/uL Eos # (Auto) 0.32 (0-0.5) K/uL Baso # (Auto) 0.02 (0-0.2) K/uL Immature Gran # (Auto) 0.00 (0.00-0.02) K/uL PT 10.2 (9.0-12.0) Seconds INR 1.0 (0.9-1.1) APTT 24.0 (21.0-31.0) Seconds PTT Ratio 0.9 Sodium (136-145) mmol/L Potassium (3.5-5.1) mmol/L Chloride (98-107) mmol/L Carbon Dioxide (21-32) mmol/L Anion Gap (3-11) BUN (7-18) mg/dl Creatinine (0.6-1.2) mg/dl Est Cr Clr Drug Dosing ml/min Est GFR ( Amer) ml/min Est GFR (Non-Af Amer) ml/min BUN/Creatinine Ratio (10-20) Glucose (70-99) mg/dl Estimat Average Glucose mg/dl Hemoglobin A1c (4.5-5.6) % Calcium (8.5-10.1) mg/dl Albumin (3.4-5.0) gm/dl Urine Color Urine Appearance (Clear) Urine pH (4.5-7.5) Ur Specific Thicket (1.000-1.030) Urine Protein (Negative) Urine Glucose (UA) (Negative) Urine Ketones (Negative) Urine Blood (Negative) Urine Nitrite (Negative) Urine Bilirubin (Negative) Urine Urobilinogen (Negative) Ur Leukocyte Esterase (Negative) COVID-19 Eval Order SARS-CoV-2, RNA, NAAT (NEGATIVE) Blood Type B Negative Antibody Screen NEGATIVE 01/10/21 01/10/21 01/10/21 Range/Units 10:58 10:58 10:58 WBC (4.8-10.8) K/uL RBC (4.2-5.4) M/uL Hgb (12.0-16.0) g/dL Hct (37-47) % MCV (80-100) fL MCH (25-34) pg MCHC (32-36) g/dL RDW Std Deviation (36.4-46.3) fL RDW Coeff of Luisa (11.5-14.5) % Plt Count (130-400) K/uL MPV (7.4-10.4) fL Immature Gran % (Auto) % Neut % (Auto) % Lymph % (Auto) % [place] % (Auto) % Eos % (Auto) % Baso % (Auto) % Neut # (Auto) (1.4-6.5) K/uL Lymph # (Auto) (1.2-3.4) K/uL [place] # (Auto) (0.11-0.59) K/uL Eos # (Auto) (0-0.5) K/uL Baso # (Auto) (0-0.2) K/uL Immature Gran # (Auto) (0.00-0.02) K/uL PT (9.0-12.0) Seconds INR (0.9-1.1) APTT (21.0-31.0) Seconds PTT Ratio Sodium 142 (136-145) mmol/L Potassium 3.4 L (3.5-5.1) mmol/L Chloride 109 H (98-107) mmol/L Carbon Dioxide 27 (21-32) mmol/L Anion Gap 6.0 (3-11) BUN 18 (7-18) mg/dl Creatinine 0.55 L (0.6-1.2) mg/dl Est Cr Clr Drug Dosing 68.2 ml/min Est GFR ( Amer) 98.4 ml/min Est GFR (Non-Af Amer) 84.9 ml/min BUN/Creatinine Ratio 32.6 H (10-20) Glucose 106 H (70-99) mg/dl Estimat Average Glucose 117 mg/dl Hemoglobin A1c 5.7 H (4.5-5.6) % Calcium 9.0 (8.5-10.1) mg/dl Albumin 3.7 (3.4-5.0) gm/dl Urine Color Yellow Urine Appearance Clear (Clear) Urine pH 5.0 (4.5-7.5) Ur Specific Thicket 1.015 (1.000-1.030) Urine Protein Negative (Negative) Urine Glucose (UA) Negative (Negative) Urine Ketones Negative (Negative) Urine Blood Negative (Negative) Urine Nitrite Negative (Negative) Urine Bilirubin Negative (Negative) Urine Urobilinogen Negative (Negative) Ur Leukocyte Esterase Negative (Negative) COVID-19 Eval Order SARS-CoV-2, RNA, NAAT (NEGATIVE) Blood Type Antibody Screen 02/09/21 02/09/21 02/10/21 Range/Units Unknown Unknown 05:14 WBC 12.04 H (4.8-10.8) K/uL RBC 3.73 L (4.2-5.4) M/uL Hgb 11.8 L (12.0-16.0) g/dL Hct 34.0 L (37-47) % MCV 91.2 (80-100) fL MCH 31.6 (25-34) pg MCHC 34.7 (32-36) g/dL RDW Std Deviation 42.3 (36.4-46.3) fL RDW Coeff of Luisa 12.5 (11.5-14.5) % Plt Count 277 (130-400) K/uL MPV 9.6 (7.4-10.4) fL Immature Gran % (Auto) % Neut % (Auto) % Lymph % (Auto) % [place] % (Auto) % Eos % (Auto) % Baso % (Auto) % Neut # (Auto) (1.4-6.5) K/uL Lymph # (Auto) (1.2-3.4) K/uL [place] # (Auto) (0.11-0.59) K/uL Eos # (Auto) (0-0.5) K/uL Baso # (Auto) (0-0.2) K/uL Immature Gran # (Auto) (0.00-0.02) K/uL PT (9.0-12.0) Seconds INR (0.9-1.1) APTT (21.0-31.0) Seconds PTT Ratio Sodium (136-145) mmol/L Potassium (3.5-5.1) mmol/L Chloride (98-107) mmol/L Carbon Dioxide (21-32) mmol/L Anion Gap (3-11) BUN (7-18) mg/dl Creatinine (0.6-1.2) mg/dl Est Cr Clr Drug Dosing ml/min Est GFR ( Amer) ml/min Est GFR (Non-Af Amer) ml/min BUN/Creatinine Ratio (10-20) Glucose (70-99) mg/dl Estimat Average Glucose mg/dl Hemoglobin A1c (4.5-5.6) % Calcium (8.5-10.1) mg/dl Albumin (3.4-5.0) gm/dl Urine Color Urine Appearance (Clear) Urine pH (4.5-7.5) Ur Specific Thicket (1.000-1.030) Urine Protein (Negative) Urine Glucose (UA) (Negative) Urine Ketones (Negative) Urine Blood (Negative) Urine Nitrite (Negative) Urine Bilirubin (Negative) Urine Urobilinogen (Negative) Ur Leukocyte Esterase (Negative) COVID-19 Eval [email or web address] SARS-CoV-2, RNA, NAAT NEGATIVE (NEGATIVE) Blood Type Antibody Screen 02/10/21 02/11/21 02/11/21 Range/Units 05:14 05:34 05:34 WBC 9.42 (4.8-10.8) K/uL RBC 3.50 L (4.2-5.4) M/uL Hgb 11.0 L (12.0-16.0) g/dL Hct 31.3 L (37-47) % MCV 89.4 (80-100) fL MCH 31.4 (25-34) pg MCHC 35.1 (32-36) g/dL RDW Std Deviation 41.2 (36.4-46.3) fL RDW Coeff of Luisa 12.8 (11.5-14.5) % Plt Count 258 (130-400) K/uL MPV 9.2 (7.4-10.4) fL Immature Gran % (Auto) % Neut % (Auto) % Lymph % (Auto) % [place] % (Auto) % Eos % (Auto) % Baso % (Auto) % Neut # (Auto) (1.4-6.5) K/uL Lymph # (Auto) (1.2-3.4) K/uL [place] # (Auto) (0.11-0.59) K/uL Eos # (Auto) (0-0.5) K/uL Baso # (Auto) (0-0.2) K/uL Immature Gran # (Auto) (0.00-0.02) K/uL PT (9.0-12.0) Seconds INR (0.9-1.1) APTT (21.0-31.0) Seconds PTT Ratio Sodium 141 140 (136-145) mmol/L Potassium 3.4 L 3.6 (3.5-5.1) mmol/L Chloride 108 H 106 (98-107) mmol/L Carbon Dioxide 28 29 (21-32) mmol/L Anion Gap 5.0 4.0 (3-11) BUN 19 H 17 (7-18) mg/dl Creatinine 0.48 L 0.41 L (0.6-1.2) mg/dl Est Cr Clr Drug Dosing 77.3 90.5 ml/min Est GFR ( Amer) 102.9 108.4 ml/min Est GFR (Non-Af Amer) 88.8 93.5 ml/min BUN/Creatinine Ratio 40.1 H 41.8 H (10-20) Glucose 119 H 82 (70-99) mg/dl Estimat Average Glucose mg/dl Hemoglobin A1c (4.5-5.6) % Calcium 8.9 8.9 (8.5-10.1) mg/dl Albumin (3.4-5.0) gm/dl Urine Color Urine Appearance (Clear) Urine pH (4.5-7.5) Ur Specific Thicket (1.000-1.030) Urine Protein (Negative) Urine Glucose (UA) (Negative) Urine Ketones (Negative) Urine Blood (Negative) Urine Nitrite (Negative) Urine Bilirubin (Negative) Urine Urobilinogen (Negative) Ur Leukocyte Esterase (Negative) COVID-19 Eval Order SARS-CoV-2, RNA, NAAT (NEGATIVE) Blood Type Antibody Screen 02/11/21 02/11/21 02/11/21 Range/Units 10:59 10:59 23:30 WBC (4.8-10.8) K/uL RBC (4.2-5.4) M/uL Hgb (12.0-16.0) g/dL Hct (37-47) % MCV (80-100) fL MCH (25-34) pg MCHC (32-36) g/dL RDW Std Deviation (36.4-46.3) fL RDW Coeff of Luisa (11.5-14.5) % Plt Count (130-400) K/uL MPV (7.4-10.4) fL Immature Gran % (Auto) % Neut % (Auto) % Lymph % (Auto) % [place] % (Auto) % Eos % (Auto) % Baso % (Auto) % Neut # (Auto) (1.4-6.5) K/uL Lymph # (Auto) (1.2-3.4) K/uL [place] # (Auto) (0.11-0.59) K/uL Eos # (Auto) (0-0.5) K/uL Baso # (Auto) (0-0.2) K/uL Immature Gran # (Auto) (0.00-0.02) K/uL PT (9.0-12.0) Seconds INR (0.9-1.1) APTT (21.0-31.0) Seconds PTT Ratio Sodium (136-145) mmol/L Potassium (3.5-5.1) mmol/L Chloride (98-107) mmol/L Carbon Dioxide (21-32) mmol/L Anion Gap (3-11) BUN (7-18) mg/dl Creatinine (0.6-1.2) mg/dl Est Cr Clr Drug Dosing ml/min Est GFR ( Amer) ml/min Est GFR (Non-Af Amer) ml/min BUN/Creatinine Ratio (10-20) Glucose (70-99) mg/dl Estimat Average Glucose mg/dl Hemoglobin A1c (4.5-5.6) % Calcium (8.5-10.1) mg/dl Albumin (3.4-5.0) gm/dl Urine Color Yellow Urine Appearance Clear (Clear) Urine pH 7.0 (4.5-7.5) Ur Specific Thicket 1.014 (1.000-1.030) Urine Protein Negative (Negative) Urine Glucose (UA) Negative (Negative) Urine Ketones Negative (Negative) Urine Blood Negative (Negative) Urine Nitrite Negative (Negative) Urine Bilirubin Negative (Negative) Urine Urobilinogen Negative (Negative) Ur Leukocyte Esterase Negative (Negative) COVID-19 Eval [facility] SARS-CoV-2, RNA, NAAT NEGATIVE (NEGATIVE) Blood Type Antibody Screen Total Time Total Time Spent Total Time Spent (In Minutes): 20 Discharge Plan Discharge Items Patient Disposition: Transfer Snf Fac Reason For Visit: Unilateral Primary Osteoarthrits, Right Knee Discharge Diagnosis: Right knee osteoarthritis Activity: Per Instructions section Weightbearing: Right weightbearing Weightbearing Comment: as tolerated with walker Non-emergency contact: Surgeon Call non-emergency contact if: your pain is not controlled, your temperature is above 101.5, your wound has increased redness and your wound has increased drainage Follow-up/Referrals: Zoe Sauceda MD [Primary Care Provider] - Diet: Regular Addtl Attending Provider Instructions: ACTIVITY RECOMMENDATIONS: SELF CARE INSTRUCTIONS AFTER TOTAL KNEE REPLACEMENT A. You may need to continue a physical therapy program after discharge from the hospital. There are several options available to you. Your doctor will assist you in selecting the best one for you. 1. An out-patient facility 2 to 3 times a week for therapy or home therapy. 2. Continue working on all exercises taught to you in the hospital. Your goals should be to increase bending of your knee to 90 degrees and beyond and to fully straighten your knee. B. You may progress at your own pace from walking with a walker or crutches to a cane; then to no assistive devices. C. Make walking a part of your daily routine. Be up as much as comfortable wi th rest periods throughout the day. Rest with leg elevation is very important. Use the ice wrap frequently for the first 3-4 weeks. D. There are no restrictions on activities. You may ride in a car, shop, participate in clothing trades workers and all social activities. E. Wear the long elastic stockings (MADHAV hose) 20 hours a day for 2 weeks after surgery. They can be removed several times a day for laundering and for a bath. F. You may shower, no tub baths until cleared by your doctor. SPECIAL CARE INSTRUCTIONS: VERY IMPORTANT TO READ AND REVIEW A. There are a few signs you need to watch for after you are home. Call [facility] if you notice any of the followin. Increased severe knee pain. Some pain is expected especially when you exercise. 2. Increased swelling in your leg or knee; pain or swelling of the calf muscle in either lower leg. 3. Any fluid drainage from the incision. 4. Shortness of breath or chest pain. B. Please call [facility] at if you have any concerns or questions about your operation or recovery. The doctor or his nurse will return your call promptly. C. You must take antibiotics before dental work, bladder, bowel or other surgery. Your doctor will provide you with a permanent care to carry describing this precaution. IMPORTANT: * REMEMBER TO TAKE RIVAROXIBAN 10MG DAILY FOR 4 WEEKS UNLESS OTHERWISE DIRECTED. THIS IS YOUR BLOOD THINNER. * CALL IF INCREASED PAIN, REDNESS, DRAINAGE OR FEVER GREATER THAT 101. * WEAR MADHAV HOSE 20 HOURS PER DAY FOR 2 WEEKS. * JEANNIE dressing - This is a large suction dressing covering your incision. This will help pull any excess drainage from the wound and allow your incision to heal properly. You may shower with this if you can keep the unit outside of the shower. If any bleeding or leakage is noted please call your doctor's office. This will remain on your incision for 7 days and then should be removed. This can be done yourself or by the home nursing staff if applicable. The entire unit is disposable once removed. Once removed, keep incision clean and dry. If redness or drainage is noted, please call your surgeon. . FOLLOW UP VISIT: If appointment is not already scheduled: Please call [facility] to make a follow-up appointment for 2 weeks after your surgery at . Pending Studies at Discharge: No Stand-Alone Forms: My [facility] Skilled Items Patient informed of condition?: Yes DNR: No Discharge Level of Care: Skilled Communicable Disease: No Discharge Prognosis: Improving Lines: None Urinary Catheter: No Medications and DC Order Prescriptions: New acetaminophen 500 mg Tablet 1,000 mg PO Q8 14 Days Qty: 84 RF: 0 Continued simvastatin 40 mg tablet 40 mg PO DAILY Qty: 90 RF: 3 chlorthalidone 50 mg tablet 50 mg PO DAILY Qty: 90 RF: 3 oxybutynin chloride 5 mg tablet 5 mg PO BID Qty: 180 RF: 1 psyllium husk [Metamucil] 0.4 gram capsule 0.4 g PO QPM RF: 0 multivitamin [Daily Multiple] tablet 1 tab PO QAM RF: 0 triamcinolone acetonide [Nasacort] 55 mcg aerosol,spray 2 sprays intranasal DAILY RF: 0 calcium carbonate-vitamin D3 600 mg(1,500mg) -400 unit tablet 1 tab PO BID RF: 0 polyethylene glycol 3350 17 gram/dose powder 17 gm PO QAM PRN (Reason: constipation) RF: 0 doxycycline hyclate 50 mg capsule 50 mg PO DAILY RF: 0 loratadine [Claritin] 10 mg tablet 10 mg PO QAM Qty: 30 RF: 0 Refresh Plus 0.5 % dropperette 1 drp ophthalmic (eye) .COMPLEX RF: 0 potassium chloride 20 mEq Tablet Extended Release 20 meq PO QPM RF: 0 levothyroxine [Synthroid] 88 mcg tablet 88 mcg PO QAM RF: 0 pantoprazole [Protonix] 40 mg tablet,delayed release (DR/EC) 40 mg PO QAM RF: 0 potassium chloride 20 mEq tablet extended release 40 meq PO QAM RF: 0 Discontinued glucosamine-chondroitin [Osteo Bi-Flex] 250-200 mg tablet 1 tab PO QAM RF: 0 Discharge Orders: Discharge Order (Routine); Ordered 02/12/21 Ordered By: Kavon Turner/Other Patient Handouts: DVT Post Op Prevention, Understanding Knee Replacement, Knee Replacement Total Dc Admission Data Admit Date/Time: 02/10/21 09:58 Attending Provider: Paulino Hill Admit Provider: Paulino Hill Primary Care Provider: Zoe Sauceda Other Providers: Chase Jimenez ; Jose Herbert Other Interventions: Discharge Summary Assessment (RN) Last Done: 02/12/21 09:55
== END 2021-02-12 13:22 | DRG 470 ==
LOC: 3E 06:58 → ASU 06:58